=== PATIENT | female | born 1940 | race Caucasian/White ===

== ENCOUNTER 2017-07-12 23:07 | Inpatient (IN) | payer MEDICARE, MEDICAID ==
[~2017-07-12] VITALS: Ht 154.9 cm; Wt 63.6 kg
[2017-07-12] MEDS ORDERED: IPRATROPIUM (NEB) 0.5 MG/2.5 ML AMP INH STA (23:12)
[2017-07-12] MEDS ORDERED: ALBUTEROL 0.5% (NEB) 2.5 MG/0.5 ML AMP INH STA (23:12)
[2017-07-12 23:15] VITALS: Ht 154.9 cm; Wt 63.6 kg
[2017-07-12 23:36] LABS: Arterial Base Excess -7.9 mmol/L (-3.0-3); Arterial COHb 0.1 % (0.0-3.0); Arterial Fraction of Oxyhgb 98.2 % (93.0-99.0); Arterial HCO3 18.6 mmol/L (22.0-26.0); Arterial MetHb 0.1 % (0.0-1.5); Arterial Total Hemglobin 11.8 g/dl (12.0-18.0); Blood Gas PS 13; MODE BIPAP - S/T
[2017-07-12 23:46] LABS: BASOPHIL # 0.1 10^3/ul (0.0-0.1); BASOPHILS % 0.4 % (0.0-2.0); EOSINOPHILS # 0.3 10^3/ul (0.0-0.5); EOSINOPHILS % 1.6 % (0.0-7.0); HEMOGLOBIN 10.7 g/dl (12.0-16.0); LYMPHOCYTES # 1.7 10^3/ul (0.8-2.9); LYMPHOCYTES % 8.8 % (15.0-51.0); MEAN CORPUSCULAR HGB CONC 31.5 g/dl (32.0-37.0); MEAN CORPUSCULAR VOLUME 79.4 fl (82.0-101.0); MEAN PLATELET VOLUME 10.3 fl (7.4-10.4); MONOCYTE # 0.8 10^3/ul (0.3-0.9); NEUTROPHIL # 15.5 10^3/ul (1.6-7.5); NEUTROPHILS % 82.2 % (39.0-77.0); PLATELET COUNT 351 10^3/UL (140-415); RED BLOOD COUNT 4.28 10^6/ul (4.20-5.40); RED CELL DISTRIBUTION WIDTH 14.6 % (11.5-14.5); WHITE BLOOD COUNT 18.9 10^3/ul (4.8-10.8)
[2017-07-13] VITALS (9 sets, daily range): BP systolic 112–121; BP diastolic 59–61; PULSE 95–132; RESP 20–21; TEMP 98.8
[2017-07-13 00:06] LABS: INR 1.09; PROTIME 14.1 Sec (12.2-14.2); PT RATIO 1.1
[2017-07-13 00:07] LABS: PARTIAL THROMBOPLASTIN TIME 31.3 Sec (25.0-35.0)
[2017-07-13 00:13] LABS: CREATININE 1.24 mg/dl (0.44-1.00); POTASSIUM 3.9 mmol/L (3.5-5.1)
[2017-07-13] MEDS ORDERED: CEFEPIME 2GM/50 ML (PMX) 50 ML IVPB STA (00:23)
[2017-07-13] MEDS ORDERED: VANCOMYCIN 1 GM (PMX) 250 ML IVPB STA (00:23)
--- NOTE | 2017-07-13 00:23 | RADRPT ---
PROCEDURE: Chest. CLINICAL INDICATION: Chest pain. TECHNIQUE: Single frontal view of the chest was obtained. COMPARISON: None. FINDINGS: The cardiac silhouette is within normal limits. The aortic arch is calcified. There are hazy and pa tchy opacities bilaterally. There is no pleural effusion. There is no pneumothorax. IMPRESSION: Bilateral hazy and patchy opacities could represent pulmonary edema and/or multifocal pneumonia. Aortic atherosclerosis. .Junaid Herman MD, MD Date Time Electronically viewed and signed by .Junaid Herman MD, on 07/13/2017 00:22 .T/
[2017-07-13 00:30] LABS: TROPONIN-I 0.259 ng/ml (0.00-0.12)
[2017-07-13] MEDS ORDERED: ASPIRIN 325 MG TAB PO ONE (01:00)
[2017-07-13] MEDS ORDERED: INSULIN REGULAR, HUMAN 100 UNIT/1 ML 3ML VIAL SC ONE (01:00)
[2017-07-13] MEDS ORDERED: ACETAMINOPHEN 325 MG TAB PO PRN ×2 (01:30→15:30)
[2017-07-13] MEDS ORDERED: ONDANSETRON 4 MG INJ IV PRN ×2 (01:30→15:30)
--- NOTE | 2017-07-13 01:42 | ERA ---
ER Documentation Chief Complaint Date/Time DATE: 07/13/17 TIME: 01:38 Chief Complaint SOB HPI This is a 77-year-old female who presents to the ER for evaluation of shortness of breath. This patient is unable to give a detailed history secondary to her clinical condition however according to snf notes and EMS this patient started to complain of shortness of breath which is gotten worse over the past 30 minutes. Prior to arrival this patient was given a breathing treatment with albuterol and Atrovent with only mild improvement in her symptoms. ROS All systems reviewed and are negative except as per history of present illness. Allergies Allergies: Coded Allergies: Opioids - Morphine Analogues (Verified Allergy, Unknown, 07/13/17) Penicillins (Verified Allergy, Unknown, 07/13/17) Sulfa (Sulfonamide Antibiotics) (Verified Allergy, Unknown, 07/13/17) iodine (Verified Allergy, Unknown, 07/13/17) PMhx/Soc Hx Neurological Disorder: Yes (encephelopathy NOS, ) Hx Respiratory Disorders: Yes (COPD, neoplasm lung ) Hx Cardiac Disorders: Yes (HTN) Smoking Status: Unknown if ever smoked Physical Exam Vitals Vital Signs Date Time Temp Pulse Resp B/P Pulse Ox O2 Delivery O2 Flow Rate FiO2 07/13/17 01:30 105 22 101/64 100 BIPAP 07/12/17 23:20 120 100 100 07/12/17 23:15 130 32 124/77 99 07/12/17 23:15 15 Physical Exam INITIAL VITAL SIGNS: Reviewed by me GENERAL: The patient is ill-appearing elderly female, severe respiratory distress HEENT: Pupils equal, round, and reactive to light. EOMI. There is no scleral icterus. NECK: C-spine is soft and supple, there is no meningismus. There is no cervical lymphadenopathy. LUNGS: Coarse breath sounds bilaterally with bilateral rales and rhonchi HEART: Tachycardic, no murmurs, clicks, rubs or gallops. ABDOMEN: Soft, non-tender, non-distended. There are bowel sounds in all four quadrants. No rebound or guarding. EXTREMITIES: There is no peripheral cyanosis or edema. No focal swelling or erythema. NEUROLOGICAL: The patient moves all four extremities with 5/5 strength. Cranial nerves II - XII are intact. Alert oriented to person SKIN: There is no apparent rash or petechiae. HEME/LYMPHATIC: There is no evidence of excessive bruising or lymphedema. PSYCHIATRIC: The patient does not appear anxious or depressed. Result Diagram: 07/12/17 2332 07/12/17 2332 Results 24 hrs Laboratory Tests Test 07/12/17 23:27 07/12/17 23:32 07/13/17 01:21 Blood Gas Specimen Source Blood arterial Arterial Blood Date Drawn 07/12/2017 11:25:00 PM Arterial Blood pH (Temp corrected) 7.268 Arterial Blood pCO2 (Temp correct) 41.7mmhg Arterial Blood pO2 (Temp corrected) 146.3mmHG Arterial Blood HCO3 18.6mmol/L Arterial Blood Base Excess -7.9mmol/L Arterial Blood Oxygen Saturation 98.4mmHG Bernard Test N/A Arterial Blood Gas Puncture Site Right Brachial Arterial Blood Carboxyhemoglobin 0.1% Arterial Blood Methemoglobin 0.1% Blood Gas A-a O2 Differential 525.0mmHg Oxyhemoglobin Percent 98.2% Total Hemoglobin 11.8g/dl Blood Gas Temperature 37.0C Blood Gas Respiration Rate 18.0 Blood Gas Actual Respiration Rate 35 Blood Gas Modality BIPAP - S/T FiO2 100.0% Blood Gas Pressure Support 13 Blood Gas Critical Value Read Back Edgardo SPRAGUE DO Blood Gas Notified Whom BL Blood Gas Notified Time 07/12/2017 11:35:00 PM White Blood Count 18.910^3/ul Red Blood Count 4.2810^6/ul Hemoglobin 10.7g/dl Hematocrit 34.0% Mean Corpuscular Volume 79.4fl Mean Corpuscular Hemoglobin 25.0pg Mean Corpuscular Hemoglobin Concent 31.5g/dl Red Cell Distribution Width 14.6% Platelet Count 20522^3/UL Mean Platelet Volume 10.3fl Neutrophils % 82.2% Lymphocytes % 8.8% Monocytes % 4.0% Eosinophils % 1.6% Basophils % 0.4% Nucleated Red Blood Cells % 0.0/100WBC Neutrophils # 15.510^3/ul Lymphocytes # 1.710^3/ul Monocytes # 0.810^3/ul Eosinophils # 0.310^3/ul Basophils # 0.110^3/ul Nucleated Red Blood Cells # 0.010^3/ul Prothrombin Time 14.1Sec Prothrombin Time Ratio 1.1 INR International Normalized Ratio 1.09 Activated Partial Thromboplast Time 31.3Sec Sodium Level 139mmol/L Potassium Level 3.9mmol/L Chloride Level 106mmol/L Carbon Dioxide Level 19mmol/L Anion Gap 18 Blood Urea Nitrogen 23mg/dl Creatinine 1.24mg/dl Glucose Level 472mg/dl Calcium Level 9.0mg/dl Troponin I 0.259ng/ml B-Type Natriuretic Peptide 6100PG/ML Bedside Glucose 439mg/dL Current Medications Medications (Trade) Dose Ordered Sig/Cristela Route PRN Reason Start Time Stop Time Status Last Admin Dose Admin Albuterol (Proventil 0.5% (Neb)) 15 mg ONCE STAT INH 07/12/17 23:12 07/12/17 23:13 DC 07/12/17 23:45 Ipratropium [place] 1 mg 1 mg ONCE STAT INH 07/12/17 23:12 07/12/17 23:13 DC 07/12/17 23:45 Vancomycin HCl 250 ml @ 125 mls/hr ONCE STAT IVPB 07/13/17 00:23 07/13/17 02:22 Cefepime HCl (Maxipime 2gm/50 ml (Pmx)) 50 ml @ 100 mls/hr ONCE STAT IVPB 07/13/17 00:23 07/13/17 00:52 DC Aspirin (Aspirin) 325 mg ONCE ONCE PO 07/13/17 01:00 07/13/17 01:01 DC Insulin Human Regular (Humulin R) 10 unit ONCE ONCE SC 07/13/17 01:00 07/13/17 01:01 DC Ondansetron HCl (Zofran Inj) 4 mg ER BRIDGE PRN IV NAUSEA AND/OR VOMITING 07/13/17 01:30 07/14/17 01:29 Acetaminophen (Tylenol Tab) 650 mg ER BRIDGE PRN PO MILD PAIN/FEVER 07/13/17 01:30 07/14/17 01:29 Procedures/MDM EKG: Rate/Rhythm: Sinus tachycardia QRS, ST, T-waves: [No changes consistent w/ acute ischemia] Impression: Sinus tachycardia Chest X-ray 1V Interpreted by me: Soft Tissue: pulmonary edema and bilateral infiltrates Bones: No acute abnormalities Mediastinum/Cardiac Silhouette/Lungs: Pulmonary edema and bilateral infiltrates This 77-year-old female presents to the ER for evaluation of shortness of breath. When I evaluated her she was in moderate to severe respiratory distress. She was immediately placed on a BiPAP. This patient is a DNR with specific DO NOT INTUBATE directions. This patient did improve on the BiPAP, the patient underwent lab work which does reveal leukocytosis with bilateral pulmonary edema versus infiltrates. The patient was started on vancomycin and cefepime. Patient does have an elevated troponin and was given 325 mg of aspirin. She was not given 30 cc/kg of IV normal saline due to the fact that she has a fluid overload on her chest x-ray and is in respiratory distress on positive pressure ventilation. This patient will be placed on the telemetry floor under the care of her physician Dr. russ. Critical Care: Excluding all billable procedures Time: 44 minutes Treatments/Evaluations: Close monitoring and treatment of unstable vital signs, cardiorespiratory, and neurologic status, while maintaining tight balance of fluid, respiratory, and cardiac interventions. Departure Diagnosis: Primary Impression: Acute respiratory failure with hypoxia Additional Impressions: Bilateral pneumonia Pulmonary edema Non-STEMI (non-ST elevated myocardial infarction) Condition: Serious REIN SPRAGUE DO Jul 13, 2017 01:42
[2017-07-13] MEDS ORDERED: SOD CHLORIDE 0.9% 500 ML IV STA (02:28)
[2017-07-13] MEDS ORDERED: FUROSEMIDE 20 MG INJ IV ONE (05:30)
[2017-07-13 06:43] LABS: CK-MB 28.7 ng/ml (0.0-2.4)
[2017-07-13 06:50] LABS: TROPONIN-I 4.26 ng/ml (0.00-0.12)
[2017-07-13 12:02] LABS: CK-MB 29.8 ng/ml (0.0-2.4)
[2017-07-13 12:03] LABS: TROPONIN-I 3.75 ng/ml (0.00-0.12)
[2017-07-13] MEDS ORDERED: FUROSEMIDE 40 MG INJ ONE (14:43)
[2017-07-13 14:52] LABS: Allen Test ACCEPTAB; Arterial Base Excess -6.9 mmol/L (-3.0-3); Arterial COHb 0.3 % (0.0-3.0); Arterial Fraction of Oxyhgb 98.2 % (93.0-99.0); Arterial HCO3 18.8 mmol/L (22.0-26.0); Arterial MetHb 0.2 % (0.0-1.5); Arterial Total Hemglobin 11.1 g/dl (12.0-18.0); MODE MASK - NRB
[2017-07-13] MEDS ORDERED: FUROSEMIDE 40 MG INJ IV ONE (15:00)
[2017-07-13] MEDS ORDERED: ALBUTEROL/IPRATROPIUM (NEB) 3 ML AMP HHN PRN (15:30)
[2017-07-13] MEDS ORDERED: NITROGLYCERIN (SL) 0.4 MG TAB SL PRN (15:30)
[2017-07-13] MEDS ORDERED: morphine 2 MG INJ IV PRN (15:30)
[2017-07-13] MEDS ORDERED: HYDROCODONE/APAP (5/325) TAB PO PRN (15:30)
[2017-07-13] MEDS ORDERED: NACL 0.9% 3 ML SYG IV SCH (15:30)
[2017-07-13] MEDS ORDERED: GLUCOSE GEL 15 GRAM TUBE PO PRN ×2 (16:00)
[2017-07-13] MEDS ORDERED: GLUCAGON 1 MG INJ IM PRN (16:00)
[2017-07-13] MEDS ORDERED: GLUCOSE GEL 15 GRAM TUBE BUCCAL PRN (16:00)
[2017-07-13] MEDS ORDERED: DEXTROSE 50% 50 ML SYRINGE IV PRN ×2 (16:00)
--- NOTE | 2017-07-13 16:19 | RADRPT ---
PROCEDURE: XR Chest 1 View. CLINICAL INDICATION: Shortness of breath. TECHNIQUE: AP view of the chest was obtained. COMPARISON: Yesterday. FINDINGS: The heart size is within normal limits. Calcified atherosclerosis is noted in the aorta. Patchy inf iltrates throughout both lungs appears similar to prior exam. Osseous structures are unchanged. IMPRESSION: Calcified atherosclerosis in the aorta. Stable patchy infiltrates throughout both lungs. RPTAT: AA .Tayo Ellsworth MD, MD Date Time Electronically viewed and signed by .Tayo Ellsworth MD, on 07/13/2017 16:19 .P/
[2017-07-13] MEDS: LEVOFLOXACIN 750MG/D5W (PMX) 150 ML IVPB SCH (16:40)
[2017-07-13] MEDS: INSULIN GLARGINE [LANtus] 3 ML PEN SC SCH (16:49)
[2017-07-13] MEDS: FUROSEMIDE 40 MG INJ IV SCH (18:29)
[2017-07-13] MEDS: INSULIN ASPART [NOVOLOG] 3 ML PEN SC SCH ×2 (18:51→21:35)
--- NOTE | 2017-07-13 19:20 | HP ---
Date/Time of Note Date/Time of Note DATE: 07/13/17 TIME: 19:07 Assessment/Plan VTE Prophylaxis VTE Prophylaxis Intervention: LMWH Lines/Catheters IV C[facility]from [facility] Assessment/Plan Chief Complaint/Hosp Course 1. Acute respiratory distress secondary to volume overload and/or pneumonia- stable BNP is elevated although it is in the setting of kidney injury Lasix IV as well as Levaquin Obtain 2D echo Breathing treatments as needed Of note rapid response was called earlier secondary to shortness of breath but patient has now stabilized 2. Sepsis secondary to pneumonia versus possible UTI Obtain UA to evaluate for UTI Levaquin IV Lactic acid elevated but has normalized 3. Hyperglycemia-unknown if patient has diabetes Start scheduled Lantus, NovoLog sliding scale A1c in a.m. 4. Acute versus chronic kidney injury-baseline creatinine unknown Monitor 5. Non-ST elevation AL likely secondary to demand ischemia Troponins are trending down 2D echo Cardiology consultation obtained Aspirin and beta-parviz 6. Dementia Baseline mentation unknown 7. Microcytic anemia Check iron panel Prophylaxis: Lovenox Problems: HPI/ROS Admit Date/Time Admit Date/Time Jul 13, 2017 at 01:24 Hx of Present Illness Patient is a 77-year-old female who resides in a correction, patient presents with shortness of breath. Patient is a poor historian secondary to likely dementia and possible psychiatric disorder, however according to correction notes and EMS this patient started to complain of shortness of breath. Prior to arrival this patient was given a breathing treatment with albuterol and Atrovent with only mild improvement in her symptoms. In the ER chest x-ray showed pulmonary edema versus multifocal pneumonia, patient was given Lasix 1 will start antibiotics. Patient cannot provide any further history at this time. ROS Unable to obtain secondary to poor mentation PMH/Family/Social Past Medical History Unable to obtain secondary to poor mentation Social History Smoking Status: Unknown if ever smoked Exam/Review of Systems Vital Signs Vitals Vital Signs Date Time Temp Pulse Resp B/P Pulse Ox O2 Delivery O2 Flow Rate FiO2 07/13/17 17:00 98.3 116 21 121/61 99 07/13/17 14:40 15.0 07/13/17 11:00 Nasal Cannula 07/13/17 06:25 30 Intake and Output 07/12/17 07/12/17 07/13/17 15:00 23:00 07:00 Intake Total 800 ml Balance 800 ml Exam Constitutional: alert Psych: confusion Respiratory: clear to auscultation Cardiovascular: regular rate and rhythm Gastrointestinal: soft, No distended Musculoskeletal: nl extremities to inspection Labs Result Diagram: 07/12/17233107/12/17 233 Medications Medications Current Medications Ondansetron HCl (Zofran Inj) 4 mg Q6H PRN IV NAUSEA AND/OR VOMITING; Start at 15:30 Acetaminophen (Tylenol Tab) 650 mg Q6H PRN PO PAIN LEVEL 1-3 OR FEVER; Start 07/13/17 at 15:30 Acetaminophen/ Hydrocodone Bitart ([place] (5/325)) 1 tab Q6H PRN PO MODERATE PAIN LEVEL 4-6; Start 07/13/17 at 15:30 Morphine Sulfate (morphine) 2 mg Q4H PRN IV SEVERE PAIN LEVEL 7-10; Start at 15:30 Enoxaparin Sodium 30 mg 30 mg DAILY SC ; Start 07/14/17 at 09:00 Levofloxacin/ Dextrose (Levaquin 750 Mg/ D5W 150 ml (Pmx)) 150 ml @ 100 mls/hr Q48H IVPB Last administered on 07/13/17t 16:40; Admin Dose 100 MLS/HR; Start 07/13/17 at 15:30 Aspirin (Aspirin) 81 mg DAILY PO ; Start 07/15/17 at 09:00 Nitroglycerin (Nitroglycerin (Sl Tab) 0.4 Mg) 1 tab Q5M PRN SL CHEST PAIN; Start 07/13/17 at 15:30 Diagnostic Test (Pha) (Accu-Chek) 1 ea 02 XX ; Start 07/14/17 at 02:00 Insulin Glargine (Lantus) 13 unit DAILY@08 SC Last administered on 07/13/17t 16:49; Admin Dose 13 UNIT; Start 07/13/17 at 15:30 Diagnostic Test (Pha) (Accu-Chek) 1 ea 02 XX ; Start 07/14/17 at 02:00 Miscellaneous Information 1 ea NOTE XX ; Start 07/13/17 at 16:00 Glucose (Glutose) 15 gm Q15M PRN PO DECREASED GLUCOSE; Start 07/13/17 at 16:00 Glucose (Glutose) 22.5 gm Q15M PRN PO DECREASED GLUCOSE; Start 07/13/17 at 16: 00 Dextrose (D50w Syringe) 25 ml Q15M PRN IV DECREASED GLUCOSE; Start 07/13/17 at 16:00 Dextrose (D50w Syringe) 50 ml Q15M PRN IV DECREASED GLUCOSE; Start 07/13/17 at 16:00 Glucagon (Glucagen) 1 mg Q15M PRN IM DECREASED GLUCOSE; Start 07/13/17 at 16: 00 Glucose (Glutose) 15 gm Q15M PRN BUCCAL DECREASED GLUCOSE; Start 07/13/17 at 16:00 DREW TURNER Jul 13, 2017 19:18
[2017-07-14] VITALS (12 sets, daily range): BP systolic 94–123; BP diastolic 52–99; PULSE 87–121; RESP 17–19
[2017-07-14] MEDS ORDERED: ACCU-CHEK XX SCH (02:00)
[2017-07-14] MEDS: FUROSEMIDE 40 MG INJ IV SCH ×2 (05:58→17:28)
[2017-07-14] MEDS: INSULIN ASPART [NOVOLOG] 3 ML PEN SC SCH ×4 (06:18→20:27)
[2017-07-14 07:49] LABS: BASOPHIL # 0.1 10^3/ul (0.0-0.1); BASOPHILS % 0.4 % (0.0-2.0); EOSINOPHILS # 0.1 10^3/ul (0.0-0.5); EOSINOPHILS % 1.2 % (0.0-7.0); HEMATOCRIT 31.7 % (37.0-47.0); HEMOGLOBIN 9.9 g/dl (12.0-16.0); LYMPHOCYTES # 1.1 10^3/ul (0.8-2.9); LYMPHOCYTES % 9.2 % (15.0-51.0); MEAN CORPUSCULAR HEMOGLOBIN 24.5 pg (29.0-33.0); MEAN CORPUSCULAR HGB CONC 31.2 g/dl (32.0-37.0); MEAN CORPUSCULAR VOLUME 78.5 fl (82.0-101.0); MEAN PLATELET VOLUME 10.6 fl (7.4-10.4); MONOCYTE # 0.6 10^3/ul (0.3-0.9); MONOCYTES % 5.4 % (0.0-11.0); NEUTROPHIL # 9.8 10^3/ul (1.6-7.5); NEUTROPHILS % 83.2 % (39.0-77.0); PLATELET COUNT 324 10^3/UL (140-415); RED BLOOD COUNT 4.04 10^6/ul (4.20-5.40); RED CELL DISTRIBUTION WIDTH 14.7 % (11.5-14.5); WHITE BLOOD COUNT 11.8 10^3/ul (4.8-10.8)
[2017-07-14 08:17] LABS: IRON 14 ug/dl (35-150)
[2017-07-14] MEDS: INSULIN GLARGINE [LANtus] 3 ML PEN SC SCH (08:24)
[2017-07-14 08:27] LABS: TOTAL IRON BINDING CAPACITY 277 ug/dl (241-421)
[2017-07-14] MEDS ORDERED: ENOXAPARIN 30 MG/0.3 ML SYG SC SCH (09:00)
--- NOTE | 2017-07-14 09:54 | CONS ---
DATE OF ADMISSION: 07/13/2017 DATE OF CONSULTATION: 07/14/2017 NEPHROLOGY CONSULTATION REASON FOR CONSULTATION: Acute kidney injury. PHYSICIAN REQUESTING CONSULT: Dr. Abbott. HISTORY OF PRESENT ILLNESS: This is a 77-year-old female with a past medical history of dementia, h istory of diabetes, hypertension, who comes in to with shortness of evelina ath. The patient prior to arrival was given breathing treatment with only mild improvement. In the emergency room, the patient had a chest x-ray which showed evidence of possible pulmonary edema and multifocal pneumonia. The patient was given IV antibiotics, diuretic therapy, placed on BiPAP and admitted to telemetry for further evaluation. While on telemetry, the patient was able to be weaned off BiPAP. The patient, however, noted to have elevated troponins. She has increased to 9. There have been no reports of any hemoptysis, hemetemesis or hematochezia. In terms of the patient's renal history, the patient on admission noted to have a creatinine of 1.24 mg/dL with unknown baseline creatinine. There have been no reports of any hemoptysis, hematochezia or hematemesis. PAST MEDICAL HISTORY: As stated above, history of dementia, history of hypertension. PAST SURGICAL HISTORY: Unknown. ALLERGIES: MULTIPLE DRUG ALLERGIES. PLEASE SEE LIST. MEDICATIONS: The patient's medications have been reviewed. REVIEW OF SYSTEMS: Unable to do adequate review of systems as patient is altered. Pertinent positi ves obtained by reviewing medical records, speaking to hospital staff, stated in HPI, otherwise nega tive. FAMILY HISTORY: Please note that family history is noncontributory. SOCIAL HISTORY: The patient resides at a custodial facility. PHYSICAL EXAMINATION: VITAL SIGNS: Blood pressure 123/99, respiration 19, pulse 105, temperature 98.1. HEENT: Head is normocephalic. Pupils are reactive to light. NECK: Supple. HEART: Regular rate. LUNGS: Show diminished breath sounds at the base. ABDOMEN: Soft, nontender to palpation. No rebound or guarding. EXTREMITIES: Negative for clubbing, cyanosis. No edema. DERMATOLOGIC: No rashes. MUSCULOSKELETAL: No joint effusions. NEUROLOGIC: No obvious focal deficits, although exam is somewhat limited due to lack of patient prep cook peration. LABORATORY DATA: From 07/14/2017 shows a troponin of 8.3, glucose 244. White count 11.8, hemoglobi n 9, hematocrit 31.7, platelet count 324. The patient's lactic acid has normalized. BMP is current ly pending. ASSESSMENT AND PLAN: This is a 77-year-old female who presents with: 1. Nonoliguric acute kidney injury with unknown baseline creatinine. Etiology of acute kidney inju ry is likely secondary to hemodynamics, septic acute kidney injury. Other possibilities include tub ular injury. Plan at this point is to check a urinalysis with microanalysis. Check urine electroly ramirez, check a renal ultrasound. Would otherwise continue current treatment plan, supportive care, re mitchell dose all meds. 2. Anemia. Monitor hemoglobin and hematocrit levels. 3. Mineral bone disorder. Monitor calcium and phosphorus levels. 4. Severe sepsis secondary to pneumonia. The patient is clinically improving. Continue current an tibiotic regimen. Follow up with Infectious Disease. 5. Elevated troponin nonSTEMI. Continue current medical management with aspirin. Cardiology consu lt was placed with Dr. Barraza for followup. Will monitor. 6. Acute respiratory failure secondary to pneumonia, possible congestive heart failure. The patien t is currently off BiPAP. We will continue current medical management. Follow up with pulmonary. 7. Possible congestive heart failure. Continue intermittent diuretic therapy, followup 2D echo. 8. Acute encephalopathy and dementia. metabolic, continue to monitor. 9. Gastrointestinal and deep venous thrombosis prophylaxis. Continue proton pump inhibitor and Rozina enox. 10. Hypertension. Continue current blood pressure regimen. 11. Diabetes. Continue Accu-Cheks, insulin sliding scale. Thank you, Dr. Abbott, for this interesting consult. It will be a pleasure to follow patient with you throughout the hospital course. Dictated By: DYLAN CORTEZ/SANTOSH Conf#: [id number] DID#: [id number]
[2017-07-14 10:07] LABS: ALBUMIN 3.7 g/dl (3.3-4.9); ALBUMIN/GLOBULIN RATIO 0.94; BILIRUBIN,INDIRECT 0.5 mg/dl (0-1.1); BILIRUBIN,TOTAL 0.5 mg/dl (0.2-1.3); CALCIUM 9.2 mg/dl (8.4-10.2); CREATININE 1.24 mg/dl (0.44-1.00); MAGNESIUM 1.8 mg/dl (1.7-2.5); PHOSPHORUS 2.2 mg/dl (2.5-4.9); POTASSIUM 4.2 mmol/L (3.5-5.1); TOTAL PROTEIN 7.6 g/dl (6.1-8.1)
--- NOTE | 2017-07-14 10:55 | CONS ---
Date/Time of Note Date/Time of Note DATE: 07/14/17 TIME: 10:52 Assessment/Plan Assessment/Plan Additional Assessment/Plan Chest x-ray was reviewed from 14th of this month which is showing diffuse bilateral pneumonia more pronounced in right lung. Chest x-ray also was reviewed from yesterday which is showing slight interval improvement. Assessment and recommendations; 1. Patient admitted with bilateral pneumonia with improving leukocytosis as well as chest x-ray. 2. Findings are most suggestive of CHF. 3. Mild underlying renal insufficiency. 4. Advanced dementia. Continue Levaquin. Add Azactam 1 g IV every 12 hours. Obtain follow-up chest x -ray in 48 hours. Consultation Date/Type/Reason Admit Date/Time Jul 13, 2017 at 01:24 Date of Consultation: Jul 14, 2017 Type of Consultation: Pulmonary Reason for Consultation Pulmonary consultation requested for evaluation of bilateral pneumonia. Next History of presenting illness; patient is a 77-year-old white lady who was admitted from intermediate with complaints of being short of breath. Upon evaluation a chest x-ray was done which was showing severe bilateral pneumonia. The patient has advanced dementia and was unable to give any history by herself whatsoever, patient however remained quite awake but was talking to herself and was not making any sense. History of no pain to medical records. Past medical history; 1. Patient with a history of advanced dementia. 2. Apparent mild renal insufficiency. Medications; reviewed. Allergies; morphine, penicillin, sulfa drugs and iodine. Family history, occupational history, social histories not obtainable. General exam; elderly woman, awake, alert. Currently in no distress. Psychological: confusion Social History Smoking Status: Unknown if ever smoked Exam/Review of Systems Vital Signs Vitals Vital Signs Date Time Temp Pulse Resp B/P Pulse Ox O2 Delivery O2 Flow Rate FiO2 07/14/17 08:22 119 07/14/17 08:07 98.1 19 123/99 93 07/14/17 00:36 21 07/13/17 16:00 Non Rebreather 15.0 Intake and Output 07/13/17 07/13/17 07/14/17 15:00 23:00 07:00 Intake Total 0 ml Output Total 1500 ml 1600 ml Balance -1500 ml -1600 ml Exam HEENT exam; supple neck, no JVD. No lymphadenopathy. No thyromegaly. No neck masses. Patient is edentulous. Pupils are midsize and reactive to light. Chest exam; diminished but clear breath sounds. S1-S2 audible, no murmurs. Regular rhythm. Abdomen exam; soft, no organomegaly. Bowel sounds audible. Nontender. Extremity exam; no peripheral edema. No clubbing. 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 Results Result Diagram: 07/14/17 0642 07/14/17 0642 Results 24 hrs Laboratory Tests Test 07/13/17 11:22 07/13/17 12:45 07/13/17 14:35 07/13/17 14:43 Creatine Kinase 323 H Creatine Kinase Index 9.2 Creatinine Kinase MB (Mass) 29.80 H Troponin I 3.750 *H Bedside Glucose 289 H 296 H Blood Gas Specimen Source Blood arterial Arterial Blood Date Drawn 07/13/2017 2:43:04 PM Arterial Blood pH (Temp corrected) 7.309 L Arterial Blood pCO2 (Temp correct) 38.3 Arterial Blood pO2 (Temp corrected) 155.7 H Arterial Blood HCO3 18.8 L Arterial Blood Base Excess -6.9 L Arterial Blood Oxygen Saturation 98.7 Bernard Test ACCEPTAB Arterial Blood Gas Puncture Site Right Radial Arterial Blood Carboxyhemoglobin 0.3 Arterial Blood Methemoglobin 0.2 Blood Gas A-a O2 Differential 519.0 H Oxyhemoglobin Percent 98.2 Total Hemoglobin 11.1 L Blood Gas Temperature 37.0 Blood Gas Modality MASK - NRB FiO2 100.0 Blood Gas Notified Whom TM Blood Gas Notified Time 07/13/2017 2:52:44 PM Test 07/13/17 15:44 07/13/17 16:47 07/13/17 18:11 07/13/17 18:33 Lactic Acid Level 1.7 Bedside Glucose 278 H 296 H Troponin I 9.300 *H Test 07/13/17 21:20 07/13/17 23:35 07/14/17 01:16 07/14/17 06:00 Bedside Glucose 193 192 217 Lactic Acid Level 1.3 Test 07/14/17 06:42 07/14/17 08:19 White Blood Count 11.8 #H Red Blood Count 4.04 L Hemoglobin 9.9 L Hematocrit 31.7 L Mean Corpuscular Volume 78.5 L Mean Corpuscular Hemoglobin 24.5 L Mean Corpuscular Hemoglobin Concent 31.2 L Red Cell Distribution Width 14.7 H Platelet Count 324 Mean Platelet Volume 10.6 H Neutrophils % 83.2 H Lymphocytes % 9.2 L Monocytes % 5.4 Eosinophils % 1.2 Basophils % 0.4 Nucleated Red Blood Cells % 0.0 Neutrophils # 9.8 H Lymphocytes # 1.1 Monocytes # 0.6 Eosinophils # 0.1 Basophils # 0.1 Nucleated Red Blood Cells # 0.0 Sodium Level 144 Potassium Level 4.2 Chloride Level 109 Carbon Dioxide Level 24 Anion Gap 15 Blood Urea Nitrogen 28 H Creatinine 1.24 H Glucose Level 231 #H Hemoglobin A1c 7.6 H Lactic Acid Level 1.4 Calcium Level 9.2 Phosphorus Level 2.2 L Magnesium Level 1.8 Iron Level 14 L Total Iron Binding Capacity 277 Percent Iron Saturation 5 L Total Bilirubin 0.5 Direct Bilirubin 0.00 Indirect Bilirubin 0.5 Aspartate Amino Transf (AST/SGOT) 60 H Alanine Aminotransferase (ALT/SGPT) 30 Alkaline Phosphatase 77 Troponin I 8.370 *H Total Protein 7.6 Albumin 3.7 Globulin 3.90 H Albumin/Globulin Ratio 0.94 Bedside Glucose 244 H Medications Medications Current Medications Ondansetron HCl (Zofran Inj) 4 mg Q6H PRN IV NAUSEA AND/OR VOMITING; Start at 15:30 Acetaminophen (Tylenol Tab) 650 mg Q6H PRN PO PAIN LEVEL 1-3 OR FEVER; Start 07/13/17 at 15:30 Acetaminophen/ Hydrocodone Bitart ([place] (5/325)) 1 tab Q6H PRN PO MODERATE PAIN LEVEL 4-6; Start 07/13/17 at 15:30 Morphine Sulfate (morphine) 2 mg Q4H PRN IV SEVERE PAIN LEVEL 7-10; Start at 15:30 Enoxaparin Sodium 30 mg 30 mg DAILY SC Last administered on 07/14/17 08:32; Admin Dose 30 MG; Start 07/14/17 at 09:00 Levofloxacin/ Dextrose (Levaquin 750 Mg/ D5W 150 ml (Pmx)) 150 ml @ 100 mls/hr Q48H IVPB Last administered on 07/13/17 16:40; Admin Dose 100 MLS/HR; Start 07/13/17 at 15:30 Aspirin (Aspirin) 81 mg DAILY PO ; Start 07/15/17 at 09:00 Nitroglycerin (Nitroglycerin (Sl Tab) 0.4 Mg) 1 tab Q5M PRN SL CHEST PAIN; Start 07/13/17 at 15:30 Diagnostic Test (Pha) (Accu-Chek) 1 ea 02 XX ; Start 07/14/17 at 02:00 Insulin Glargine (Lantus) 13 unit DAILY@08 SC Last administered on 07/14/17 08:24; Admin Dose 13 UNIT; Start 07/13/17 at 15:30 Diagnostic Test (Pha) (Accu-Chek) 1 ea 02 XX ; Start 07/14/17 at 02:00 Miscellaneous Information 1 ea NOTE XX ; Start 07/13/17 at 16:00 Glucose (Glutose) 15 gm Q15M PRN PO DECREASED GLUCOSE; Start 07/13/17 at 16:00 Glucose (Glutose) 22.5 gm Q15M PRN PO DECREASED GLUCOSE; Start 07/13/17 at 16: 00 Dextrose (D50w Syringe) 25 ml Q15M PRN IV DECREASED GLUCOSE; Start 07/13/17 at 16:00 Dextrose (D50w Syringe) 50 ml Q15M PRN IV DECREASED GLUCOSE; Start 07/13/17 at 16:00 Glucagon (Glucagen) 1 mg Q15M PRN IM DECREASED GLUCOSE; Start 07/13/17 at 16: 00 Glucose (Glutose) 15 gm Q15M PRN BUCCAL DECREASED GLUCOSE; Start 07/13/17 at 16:00 Carvedilol (Coreg) 3.125 mg BID PO Last administered on 07/14/17t 08:30; Admin Dose 3.125 MG; Start 07/13/17 at 21:00 SHARATH HARRIS Jul 14, 2017 10:55
[2017-07-14] MEDS: AZTREONAM 1 GM/NS (PMX) 50 ML IVPB SCH ×2 (12:40→20:39)
--- NOTE | 2017-07-14 14:23 | CONS ---
DATE OF ADMISSION: 07/13/2017 DATE OF CONSULTATION: 07/14/2017 INFECTIOUS DISEASE CONSULTATION REASON FOR CONSULTATION: Antibiotic management. HISTORY OF PRESENT ILLNESS: Janine Murray is a 77-year-old female who resides in a [facility] and presented with shortness of breath. Her problems include: 1. Dementia. 2. Probable psychiatric disorder. Acutely, the patient comes in with shortness of breath. Her white count is 18.9, H and H 10.7, and 30 and 34, platelet count 351,000. BUN and creatinine 23/1.2. Glucose random is 472. PAST MEDICAL HISTORY: Operations as outlined. FAMILY HISTORY: Noncontributory. SOCIAL HISTORY: She does not smoke, drink or abuse drugs. ALLERGIES: NONE TO PENICILLIN, SULFA OR FOODS. MEDICATIONS: Per chart. REVIEW OF SYSTEMS: As per HPI. HOSPITAL COURSE: Her chest x-ray on the shows stable patchy infiltrates throughout both lungs. PHYSICAL EXAMINATION: GENERAL: The patient is an elderly appearing female who is awake, but confused, in no acute distres s. VITAL SIGNS: Stable. She is afebrile. SKIN: Without generalized rash. HEENT: Within normal limits. NECK: Supple. LYMPH NODES: None palpable. CHEST: Decreased breath sounds at the bases. HEART: Without murmur or gallop. ABDOMEN: Soft, nontender, without organosplenomegaly or masses. EXTREMITIES: Without cyanosis, clubbing, or edema. RECTAL AND GENITAL: Deferred. NEUROLOGIC: No focal neurological abnormalities. IMPRESSION AND PLAN: The patient has severe sepsis secondary to pneumonia. She is clinically impro ving. She has been seen by Dr. Larkin and . She has bilateral pneumonia, improving leuko cytosis. Azactam was added to her regimen since she is allergic to morphine, penicillin, sulfa drug s and iodine. Her white count today is 11.8. We will continue her on current therapy, Levaquin and Azactam. I will dictate my findings to the hospitalist and to and Dr. Larkin. Dictated By: LELE DE LEON MD, JD/SANTOSH Conf#: [id number] DID#: [id number]
--- NOTE | 2017-07-14 14:28 | PN ---
Date/Time of Note Date/Time of Note DATE: 07/14/17 TIME: 14:24 Assessment/Plan VTE Prophylaxis VTE Prophylaxis Intervention: LMWH Lines/Catheters IV Catheter Type (from Nrs): Saline Lock Central line still needed: Yes Urinary Cath still in place: Yes Reason Cath still needed: urinary retention Assessment/Plan Chief Complaint/Hosp Course 77 yo female with dementia, DMII who presented with pneumonia, acute decompnestaed CHF and sepsis with NSTEMI NSTEMI: - Suspect this was demand ischemia, though likely does have underlying CAD - Aspirin/statin Pneumonia: - Abx course CHF: - Diuresis, euvolemic Dementia: - stable need to obtain collateral from family Problems: Subjective 24 Hr Interval Summary Free Text/Dictation Patient w advanced dementia, cannot provide history She is quite comfortable appearing, no discomfort she comlains of Exam/Review of Systems Vital Signs Vitals Vital Signs Date Time Temp Pulse Resp B/P Pulse Ox O2 Delivery O2 Flow Rate FiO2 07/14/17 12:18 87 07/14/17 11:48 98.1 17 110/52 92 07/14/17 00:36 21 07/13/17 16:00 Non Rebreather 15.0 Intake and Output 07/13/17 07/13/17 07/14/17 15:00 23:00 07:00 Intake Total 0 ml Output Total 1500 ml 1600 ml Balance -1500 ml -1600 ml Exam Alert, pleasantly demented, nonsensical speech RRR Flat neck veins Nonlabored respiratory pattern No peripheral edema Psych: nl mood/affect, no complaints Head: atraumatic, normocephalic Eyes: EOMI, PERRL, nl conjunctiva, nl lids, nl sclera ENMT: nl external ears & nose, nl lips & teeth, nl nasal mucosa & septum Neck: non-tender, supple Respiratory: clear to auscultation, normal air movement Cardiovascular: nl pulses, regular rate and rhythm Gastrointestinal: nl liver, spleen, non-tender, soft Musculoskeletal: nl extremities to inspection, nl gait and stance Extremities: normal pulses Neurological: DELICATE [employer] PRESSER II-XII intact, nl mental status, nl speech, nl strength Skin: nl turgor, No rash or lesions Lymph: nl lymph nodes Results Result Diagram: 07/14/17 0642 07/14/17 0642 Results 24 hrs Laboratory Tests Test 07/13/17 14:35 07/13/17 14:43 07/13/17 15:44 07/13/17 16:47 Bedside Glucose 296 H 278 H Blood Gas Specimen Source Blood arterial Arterial Blood Date Drawn 07/13/2017 2:43:04 PM Arterial Blood pH (Temp corrected) 7.309 L Arterial Blood pCO2 (Temp correct) 38.3 Arterial Blood pO2 (Temp corrected) 155.7 H Arterial Blood HCO3 18.8 L Arterial Blood Base Excess -6.9 L Arterial Blood Oxygen Saturation 98.7 Bernard Test ACCEPTAB Arterial Blood Gas Puncture Site Right Radial Arterial Blood Carboxyhemoglobin 0.3 Arterial Blood Methemoglobin 0.2 Blood Gas A-a O2 Differential 519.0 H Oxyhemoglobin Percent 98.2 Total Hemoglobin 11.1 L Blood Gas Temperature 37.0 Blood Gas Modality MASK - NRB FiO2 100.0 Blood Gas Notified Whom TM Blood Gas Notified Time 07/13/2017 2:52:44 PM Lactic Acid Level 1.7 Test 07/13/17 18:11 07/13/17 18:33 07/13/17 21:20 07/13/17 23:35 Bedside Glucose 296 H 193 Troponin I 9.300 *H Lactic Acid Level 1.3 Test 07/14/17 01:16 07/14/17 06:00 07/14/17 06:42 07/14/17 08:19 Bedside Glucose 192 217 244 H White Blood Count 11.8 #H Red Blood Count 4.04 L Hemoglobin 9.9 L Hematocrit 31.7 L Mean Corpuscular Volume 78.5 L Mean Corpuscular Hemoglobin 24.5 L Mean Corpuscular Hemoglobin Concent 31.2 L Red Cell Distribution Width 14.7 H Platelet Count 324 Mean Platelet Volume 10.6 H Neutrophils % 83.2 H Lymphocytes % 9.2 L Monocytes % 5.4 Eosinophils % 1.2 Basophils % 0.4 Nucleated Red Blood Cells % 0.0 Neutrophils # 9.8 H Lymphocytes # 1.1 Monocytes # 0.6 Eosinophils # 0.1 Basophils # 0.1 Nucleated Red Blood Cells # 0.0 Sodium Level 144 Potassium Level 4.2 Chloride Level 109 Carbon Dioxide Level 24 Anion Gap 15 Blood Urea Nitrogen 28 H Creatinine 1.24 H Glucose Level 231 #H Hemoglobin A1c 7.6 H Lactic Acid Level 1.4 Calcium Level 9.2 Phosphorus Level 2.2 L Magnesium Level 1.8 Iron Level 14 L Total Iron Binding Capacity 277 Percent Iron Saturation 5 L Total Bilirubin 0.5 Direct Bilirubin 0.00 Indirect Bilirubin 0.5 Aspartate Amino Transf (AST/SGOT) 60 H Alanine Aminotransferase (ALT/SGPT) 30 Alkaline Phosphatase 77 Troponin I 8.370 *H Total Protein 7.6 Albumin 3.7 Globulin 3.90 H Albumin/Globulin Ratio 0.94 Test 07/14/17 12:16 Bedside Glucose 218 Medications Medications Current Medications Ondansetron HCl (Zofran Inj) 4 mg Q6H PRN IV NAUSEA AND/OR VOMITING; Start at 15:30 Acetaminophen (Tylenol Tab) 650 mg Q6H PRN PO PAIN LEVEL 1-3 OR FEVER; Start 07/13/17 at 15:30 Acetaminophen/ Hydrocodone Bitart ([place] (5/325)) 1 tab Q6H PRN PO MODERATE PAIN LEVEL 4-6; Start 07/13/17 at 15:30 Morphine Sulfate 2 mg 2 mg Q4H PRN IV SEVERE PAIN LEVEL 7-10; Start 07/13/17 at 15:30 Levofloxacin/ Dextrose (Levaquin 750 Mg/ D5W 150 ml (Pmx)) 150 ml @ 100 mls/hr Q48H IVPB Last administered on 07/13/17t 16:40; Admin Dose 100 MLS/HR; Start 07/13/17 at 15:30 Aspirin (Aspirin) 81 mg DAILY PO ; Start 07/15/17 at 09:00 Nitroglycerin (Nitroglycerin (Sl Tab) 0.4 Mg) 1 tab Q5M PRN SL CHEST PAIN; Start 07/13/17 at 15:30 Diagnostic Test (Pha) (Accu-Chek) 1 ea 02 XX ; Start 07/14/17 at 02:00 Insulin Glargine (Lantus) 13 unit DAILY@08 SC Last administered on 07/14/17t 08:24; Admin Dose 13 UNIT; Start 07/13/17 at 15:30 Diagnostic Test (Pha) (Accu-Chek) 1 ea 02 XX ; Start 07/14/17 at 02:00 Miscellaneous Information 1 ea NOTE XX ; Start 07/13/17 at 16:00 Glucose (Glutose) 15 gm Q15M PRN PO DECREASED GLUCOSE; Start 07/13/17 at 16:00 Glucose (Glutose) 22.5 gm Q15M PRN PO DECREASED GLUCOSE; Start 07/13/17 at 16: 00 Dextrose (D50w Syringe) 25 ml Q15M PRN IV DECREASED GLUCOSE; Start 07/13/17 at 16:00 Dextrose (D50w Syringe) 50 ml Q15M PRN IV DECREASED GLUCOSE; Start 07/13/17 at 16:00 Glucagon (Glucagen) 1 mg Q15M PRN IM DECREASED GLUCOSE; Start 07/13/17 at 16: 00 Glucose (Glutose) 15 gm Q15M PRN BUCCAL DECREASED GLUCOSE; Start 07/13/17 at 16:00 Carvedilol 3.125 mg 3.125 mg BID PO Last administered on 07/14/17 08:30; Admin Dose 3.125 MG; Start 07/13/17 at 21:00 Aztreonam (Azactam 1gm/NS (Pmx)) 50 ml @ 100 mls/hr Q12 IVPB Last administered on 07/14/17 12:40; Admin Dose 100 MLS/HR; Start 07/14/17 at 12: 30 Enoxaparin Sodium (Lovenox) 60 mg DAILY SC ; Start 07/15/17 at 09:00 EUGENIE STRONG MD Jul 14, 2017 14:28
--- NOTE | 2017-07-14 15:35 | CONS ---
DATE OF ADMISSION: 07/13/2017 DATE OF CONSULTATION: 07/14/2017 REASON FOR CONSULTATION: Non-ST elevation myocardial infarction. REQUESTING PHYSICIAN: Dr. Abbott from the hospitalist service. HISTORY OF PRESENT ILLNESS: Ms. Murray is a 77-year-old female with a history of advanced dementia, c hronic kidney disease, hypertension who initially presented from her chronic care facility with wors ening shortness of breath. Upon arrival in the emergency department, temperature of 97.8, blood pre ssure 124/77, pulse 130, respiratory rate 32, saturating 99% on 15 liters. Patient's labs were nota ble for a sodium of 139, a potassium of 3.9, creatinine 1.24, BUN 23, glucose of 472. Troponin posi tive 0.25 now with a BNP of 6100. ABG revealing a pH of 7.268, a PaO2 of 146, a pCO2 of 41. An INR of 10, white count of 18.9, hemoglobin of 10.7, platelet count 351. The patient underwent a chest x-ray revealing bilateral hazy and patchy opacities that could represent pulmonary edema and/or mult ifocal pneumonia. The patient's electrocardiogram revealed sinus tachycardia at 118 with borderline inferior and lateral ST depressions. Patient subsequently is admitted to the floor. She has been monitored on telemetry, placed on low dose beta parviz Carvedilol, Lasix diuresis, broad-spectrum a ntibiotics. The patient's troponins were trending up from 0.259 up to a peak of 9.3 and then back d own to 8.3 today. The patient denies chest pain at this time. PAST MEDICAL HISTORY: As above in HPI. MEDICATIONS CURRENTLY IN HOSPITAL 1. Aspirin 81 mg daily. 2. Aztreonam q.12h. 3. Lovenox subcutaneous daily. 4. Carvedilol 3.125 mg p.o. b.i.d. 5. Insulin sliding scale. 6. Lasix 20 mg IV b.i.d. 7. Levofloxacin. 8. Lantus. ALLERGIES: 1. MORPHINE. 2. PENICILLIN. 3. SULFA. 4. IODINE. SOCIAL HISTORY: No current tobacco, ETOH or illicit drug use. FAMILY HISTORY: No history of sudden cardiac or early CAD. REVIEW OF SYSTEMS: As above in HPI. CONSTITUTIONAL: No fevers, chills. PULMONARY: No current signs of respiratory compromise. GASTROINTESTINAL: No vomiting. GENITOURINARY: No hematuria. MUSCULOSKELETAL: Degenerative joint disease. PSYCHIATRIC: No documented psych history. NEUROLOGIC: Dementia, confusion. PHYSICAL EXAMINATION: VITAL SIGNS: Temperature of 98.1, blood pressure 110/52, pulse 90, respirations 17, saturating 92%. GENERAL: The patient is alert, awake, in no acute distress. NECK: JVP approximately 9 cm water. CHEST: Decreased breath sounds at bases bilaterally. HEART: Regular rate and rhythm. Normal S1, S2, I/ systolic murmur, nondisplaced PMI. ABDOMEN: Positive bowel sounds, soft. EXTREMITIES: No pitting edema, 1+ pulses bilaterally posterior tibial. LABORATORY DATA: Most recent from today, sodium 144, potassium 4.2, creatinine 1.24, BUN of 28, AST 60, ALT 30. Troponin 8.37, down from a peak of 9, white count 11.8, hemoglobin of 9.9, platelet co unt 324. IMAGING STUDIES: As above in HPI with chest x-ray from the revealing calcified atherosclerosis of aorta, stable patchy infiltrates throughout both lungs. ECG: As above in HPI. No further electrocardiograms for my review at this time. IMPRESSION: 1. Non-ST elevation myocardial infarction in the setting of respiratory distress, mild renal insuff iciency with currently down trending cardiac enzymes. No chest pain. 2. Hypertension, under reasonable control. 3. Abnormal electrocardiogram with nonspecific ST and T abnormalities in the setting of non-ST elev ation myocardial infarction. 4. Probable congestive heart failure by chest x-ray, question systolic versus diastolic acute on chronic. 5. Likely associated pneumonia. 6. Renal insufficiency. 7. Diabetes mellitus, uncontrolled blood sugars. 8. Leukocytosis. 9. Anemia. RECOMMENDATIONS: 1. At this time, would maintain patient on telemetry monitoring to follow rhythm and rates closely. 2. Continue to trend the patient's cardiac enzymes to assess for any significant ongoing cardiac da mage, thus an EKG in the morning, EKG for any complaints of chest pain or change in rhythm. 3. Continue the patient's aspirin at this time in the setting of positive troponin and will continu e the patient's Lovenox, will increase it to treatment doses. 4. Continue the patient's beta parviz at this time following heart rate and blood pressure closely . 5. We will check a 2D echocardiogram to further assess patient's ejection fraction, wall motion and any major valve abnormalities. 6. Continue the patient's Lasix diuresis, following volume status closely and continue the patient' s antibiotics and follow up all culture data. Additionally, continue to follow the patient's blood sugars closely and follow the patient's ongoing mental status with significant confusion closely. 7. Will put him on a medical therapy on this patient at this time until patient has improvement, po ssibly in mental status. Thank you for allowing me to take part in the care of this patient. I will continue to follow along very closely with you. Further recommendations will be made as the patient progresses through her inpatient hospital clinical course. Dictated By: ANGEL MIX/SANTOSH Conf#: [id number] DID#: [id number]
[2017-07-14] MEDS: ACCU-CHEK XX SCH (20:20)
[2017-07-14 22:16] LABS: CK-MB 4.45 ng/ml (0.0-2.4)
[2017-07-14 22:22] LABS: TROPONIN-I 8.39 ng/ml (0.00-0.12)
[2017-07-14 23:55] LABS: ADD UMIC YES; UR ASCORBIC ACID NEGATIVE (NEGATIVE); UR BILIRUBIN (Dip) NEGATIVE (NEGATIVE); UR BLOOD (Dip) 3+ mg/dL (NEGATIVE); UR CLARITY SLIGHTLY CLOUDY (CLEAR); UR COLOR YELLOW (YELLOW); UR GLUCOSE (Dip) NEGATIVE (NEGATIVE); UR KETONES (Dip) NEGATIVE (NEGATIVE); UR LEUKOCYTE ESTERASE (Dip) 2+ Leu/ul (NEGATIVE); UR MUCUS FEW /HPF (NONE SEEN); UR NITRITE (Dip) NEGATIVE (NEGATIVE); UR RBC > 182 /HPF (0-5); UR TOTAL PROTEIN (Dip) 2+ mg/dl (NEGATIVE); UR UROBILINOGEN (Dip) NEGATIVE (NEGATIVE)
[2017-07-15] VITALS (13 sets, daily range): BP systolic 97–120; BP diastolic 54–94; PULSE 81–97; RESP 17–18
[2017-07-15] MEDS: ACCU-CHEK XX SCH (01:21)
[2017-07-15 01:55] LABS: CK-MB 3.41 ng/ml (0.0-2.4)
[2017-07-15 02:09] LABS: TROPONIN-I 8.42 ng/ml (0.00-0.12)
[2017-07-15] MEDS: FUROSEMIDE 40 MG INJ IV SCH ×2 (05:14→18:18)
[2017-07-15 07:39] LABS: BASOPHIL # 0.1 10^3/ul (0.0-0.1); BASOPHILS % 0.5 % (0.0-2.0); EOSINOPHILS # 0.4 10^3/ul (0.0-0.5); EOSINOPHILS % 3.9 % (0.0-7.0); HEMATOCRIT 30.9 % (37.0-47.0); HEMOGLOBIN 9.8 g/dl (12.0-16.0); LYMPHOCYTES # 1.4 10^3/ul (0.8-2.9); LYMPHOCYTES % 13.8 % (15.0-51.0); MEAN CORPUSCULAR HEMOGLOBIN 24.8 pg (29.0-33.0); MEAN CORPUSCULAR HGB CONC 31.7 g/dl (32.0-37.0); MEAN CORPUSCULAR VOLUME 78.2 fl (82.0-101.0); MEAN PLATELET VOLUME 10.4 fl (7.4-10.4); MONOCYTE # 0.6 10^3/ul (0.3-0.9); MONOCYTES % 6.2 % (0.0-11.0); NEUTROPHIL # 7.7 10^3/ul (1.6-7.5); NEUTROPHILS % 75.1 % (39.0-77.0); PLATELET COUNT 338 10^3/UL (140-415); RED BLOOD COUNT 3.95 10^6/ul (4.20-5.40); RED CELL DISTRIBUTION WIDTH 14.7 % (11.5-14.5); WHITE BLOOD COUNT 10.3 10^3/ul (4.8-10.8)
[2017-07-15 08:02] LABS: ALBUMIN 3.4 g/dl (3.3-4.9); ALBUMIN/GLOBULIN RATIO 0.82; BILIRUBIN,INDIRECT 0.4 mg/dl (0-1.1); BILIRUBIN,TOTAL 0.4 mg/dl (0.2-1.3); CALCIUM 9.4 mg/dl (8.4-10.2); CREATININE 1.41 mg/dl (0.44-1.00); POTASSIUM 3.4 mmol/L (3.5-5.1); TOTAL PROTEIN 7.5 g/dl (6.1-8.1)
[2017-07-15 08:16] LABS: MAGNESIUM 1.7 mg/dl (1.7-2.5); PHOSPHORUS 2.7 mg/dl (2.5-4.9)
[2017-07-15 08:17] LABS: CHOL/HDL RATIO 6.2 RATIO
[2017-07-15] MEDS: INSULIN GLARGINE [LANtus] 3 ML PEN SC SCH (08:19)
[2017-07-15] MEDS: INSULIN ASPART [NOVOLOG] 3 ML PEN SC SCH ×4 (08:27→20:54)
[2017-07-15 08:33] LABS: THYROID STIMULATING HORMONE 0.064 MIU/L (0.465-4.680)
[2017-07-15 08:37] LABS: FERRITIN 58.5 ng/ml (11.1-264.0)
[2017-07-15] MEDS: AZTREONAM 1 GM/NS (PMX) 50 ML IVPB SCH ×2 (10:35→20:54)
--- NOTE | 2017-07-15 10:38 | CONS ---
Date/Time of Note Date/Time of Note DATE: 07/15/17 TIME: 10:37 Assessment/Plan Assessment/Plan Additional Assessment/Plan 1. Non-ST elevation myocardial infarction in the setting of respiratory distress, mild renal insufficiency with currently down trending cardiac enzymes. No chest pain. MED rx for now. 2. Hypertension, under reasonable control - well Rx now. 3. Abnormal electrocardiogram with nonspecific ST and T abnormalities in the setting of non-ST elevation myocardial infarction. 4. Probable congestive heart failure by chest x-ray, question systolic versus diastolic acute on chronic. ECHO to follow. 5. Likely associated pneumonia. On anti-bx. 6. Renal insufficiency. 7. Diabetes mellitus, uncontrolled blood sugars. 8. Leukocytosis. 9. Anemia. Consultation Date/Type/Reason Admit Date/Time Jul 13, 2017 at 01:24 Initial Consult Date 07/14/17 Type of Consultation: Pulmonary 24 HR Interval Summary Free Text/Dictation NO acute events - BP in good range - no CP now. ROS: No fever, no chills, no nausea, no vomiting, no diarrhea/constipation No recent weight changes No chest pain, no PND, no orthopnea No dizziness, blurred vision No thirst, no heat or cold intolerance Exam/Review of Systems Vital Signs Vitals Vital Signs Date Time Temp Pulse Resp B/P Pulse Ox O2 Delivery O2 Flow Rate FiO2 07/15/17 08:00 86 07/15/17 07:56 97.8 18 120/94 94 07/15/17 01:57 21 07/13/17 16:00 Non Rebreather 15.0 Intake and Output 07/14/17 07/14/17 07/15/17 15:00 23:00 07:00 Intake Total 740 ml 120 ml Output Total 1200 ml 800 ml Balance -460 ml -680 ml Exam General: WN/WD/NAD, AOx comfortable HEENT: Unicetric/atraumatic/EOMI (follows commands) NECK: JVD elevated, no thyromegaly Lymph: no lymphadenopathy HEART: regular with no S3, II/ systolic murmur at apex LUNGS: Coarse sounds ABD: soft, NT, ND, +BS : Intact Neuro: non focal SKIN: chronic changes EXT: trace edema Results Result Diagram: 07/15/17 0700 07/15/17 0700 Results 24 hrs Laboratory Tests Test 07/14/17 12:16 07/14/17 17:15 07/14/17 20:26 07/14/17 21:27 Bedside Glucose 218 204 169 Creatine Kinase 134 # Creatine Kinase Index 3.3 Creatinine Kinase MB (Mass) 4.45 H Troponin I 8.390 *H Test 07/14/17 22:53 07/14/17 23:35 07/15/17 01:08 07/15/17 07:00 Urine Color YELLOW Urine Clarity SLIGHTLY CLOUDY A Urine pH 5.0 Urine Specific [place] 1.010 Urine Ketones NEGATIVE Urine Nitrite NEGATIVE Urine Bilirubin NEGATIVE Urine Urobilinogen NEGATIVE Urine Leukocyte Esterase 2+ H Urine Microscopic RBC > 182 H Urine Microscopic WBC 40 H Urine Mucus FEW A Urine Hemoglobin 3+ H Urine Glucose NEGATIVE Urine Total Protein 2+ H Troponin I 10.400 *H 8.420 *H Creatine Kinase 125 Creatine Kinase Index 2.7 Creatinine Kinase MB (Mass) 3.41 H White Blood Count 10.3 Red Blood Count 3.95 L Hemoglobin 9.8 L Hematocrit 30.9 L Mean Corpuscular Volume 78.2 L Mean Corpuscular Hemoglobin 24.8 L Mean Corpuscular Hemoglobin Concent 31.7 L Red Cell Distribution Width 14.7 H Platelet Count 338 Mean Platelet Volume 10.4 Neutrophils % 75.1 Lymphocytes % 13.8 L Monocytes % 6.2 Eosinophils % 3.9 Basophils % 0.5 Nucleated Red Blood Cells % 0.0 Neutrophils # 7.7 H Lymphocytes # 1.4 Monocytes # 0.6 Eosinophils # 0.4 Basophils # 0.1 Nucleated Red Blood Cells # 0.0 Sodium Level 143 Potassium Level 3.4 L Chloride Level 104 Carbon Dioxide Level 29 Anion Gap 13 Blood Urea Nitrogen 34 H Creatinine 1.41 H Glucose Level 214 Calcium Level 9.4 Phosphorus Level 2.7 Magnesium Level 1.7 Ferritin 58.5 Total Bilirubin 0.4 Direct Bilirubin 0.00 Indirect Bilirubin 0.4 Aspartate Amino Transf (AST/SGOT) 38 Alanine Aminotransferase (ALT/SGPT) 23 Alkaline Phosphatase 78 Total Protein 7.5 Albumin 3.4 Globulin 4.10 H Albumin/Globulin Ratio 0.82 Triglycerides Level 185 H Cholesterol Level 230 H LDL Cholesterol, Calculated 156 HDL Cholesterol 37 Cholesterol/HDL Ratio 6.2 Thyroid Stimulating Hormone (TSH) 0.064 L Test 07/15/17 07:53 Bedside Glucose 215 Medications Medications Current Medications Ondansetron HCl (Zofran Inj) 4 mg Q6H PRN IV NAUSEA AND/OR VOMITING; Start at 15:30 Acetaminophen (Tylenol Tab) 650 mg Q6H PRN PO PAIN LEVEL 1-3 OR FEVER; Start 07/13/17 at 15:30 Acetaminophen/ Hydrocodone Bitart ([place] (5/325)) 1 tab Q6H PRN PO MODERATE PAIN LEVEL 4-6; Start 07/13/17 at 15:30 Morphine Sulfate 2 mg 2 mg Q4H PRN IV SEVERE PAIN LEVEL 7-10; Start 07/13/17 at 15:30 Levofloxacin/ Dextrose (Levaquin 750 Mg/ D5W 150 ml (Pmx)) 150 ml @ 100 mls/hr Q48H IVPB Last administered on 07/13/17 16:40; Admin Dose 100 MLS/HR; Start 07/13/17 at 15:30 Aspirin (Aspirin) 81 mg DAILY PO ; Start 07/15/17 at 09:00 Nitroglycerin (Nitroglycerin (Sl Tab) 0.4 Mg) 1 tab Q5M PRN SL CHEST PAIN; Start 07/13/17 at 15:30 Diagnostic Test (Pha) (Accu-Chek) 1 ea 02 XX Last administered on 07/14/17 20 :20; Admin Dose 1 EA; Start 07/14/17 at 02:00 Miscellaneous Information 1 ea NOTE XX ; Start 07/13/17 at 16:00 Glucose (Glutose) 15 gm Q15M PRN PO DECREASED GLUCOSE; Start 07/13/17 at 16:00 Glucose (Glutose) 22.5 gm Q15M PRN PO DECREASED GLUCOSE; Start 07/13/17 at 16: 00 Dextrose (D50w Syringe) 25 ml Q15M PRN IV DECREASED GLUCOSE; Start 07/13/17 at 16:00 Dextrose (D50w Syringe) 50 ml Q15M PRN IV DECREASED GLUCOSE; Start 07/13/17 at 16:00 Glucagon (Glucagen) 1 mg Q15M PRN IM DECREASED GLUCOSE; Start 07/13/17 at 16: 00 Glucose (Glutose) 15 gm Q15M PRN BUCCAL DECREASED GLUCOSE; Start 07/13/17 at 16:00 Carvedilol 3.125 mg 3.125 mg BID PO Last administered on 07/14/17 08:30; Admin Dose 3.125 MG; Start 07/13/17 at 21:00 Aztreonam (Azactam 1gm/NS (Pmx)) 50 ml @ 100 mls/hr Q12 IVPB Last administered on 07/14/17 20:39; Admin Dose 100 MLS/HR; Start 07/14/17 at 12: 30 Enoxaparin Sodium (Lovenox) 60 mg DAILY SC ; Start 07/15/17 at 09:00 Insulin Glargine (Lantus) 20 unit DAILY@08 SC Last administered on 07/15/17 08:19; Admin Dose 20 UNIT; Start 07/15/17 at 08:00 ROSALIND MULLEN MD Jul 15, 2017 10:38
--- NOTE | 2017-07-15 10:46 | PN ---
DATE: 07/15/2017 SUBJECTIVE: The patient is stable. No events overnight. OBJECTIVE: VITAL SIGNS: Blood pressure is 120/94, temperature 97.8, pulse 77, respiration 18. HEENT: Head is normocephalic. NECK: Supple. HEART: Regular rate. LUNGS: Show diminished breath sounds at base. ABDOMEN: Soft, nontender to palpation without rebound or guarding. EXTREMITIES: Negative for clubbing, cyanosis, no edema. DERMATOLOGIC: No rashes. MUSCULOSKELETAL: No joint effusions. NEUROLOGIC: No change in exam. MEDICATIONS: The patient's medications have been reviewed. LABORATORY DATA: Shows white count 10.3, hemoglobin 9.8, hematocrit 30.9, platelet count is 338. S odium 143, potassium 3.4, BUN 34, creatinine 1.41. ASSESSMENT AND PLAN: 1. Nonoliguric acute kidney injury with unknown baseline creatinine. Etiology of acute kidney inju ry was secondary to hemodynamics and septic acute kidney injury. The patient's renal function has d eclined in the last 24 hours, patient's urinalysis does show significant pyuria, hematuria likely du e to underlying infection. The possibility of an interstitial process is a consideration. At this point, would continue current treatment plan, supportive care, renally dose all meds. 2. Hypokalemia. We will replete with potassium chloride. 3. Anemia. Monitor hemoglobin and hematocrit levels. 4. Mineral bone disorder, monitor calcium and phosphorus levels. 5. Severe sepsis secondary to pneumonia. Continue current antibiotic regimen and follow up with in fectious disease. 6. Non-ST elevation myocardial infarction. Continue current treatment plan. Follow up with cardio logy. 7. Acute respiratory failure secondary to pneumonia and congestive heart failure. The patient is c urrently off BiPAP. Continue to monitor. 8. Acute encephalopathy and dementia. Etiology is toxic metabolic. 9. Hypertension. Continue current blood pressure regimen. 10. Diabetes. Continue Accu-Cheks, insulin sliding scale. Dictated By: DYLAN COHN DO NR/NTS Conf#: [id number] DID#: [id number]
[2017-07-15] MEDS: ASPIRIN 81 MG TAB PO SCH (10:49)
[2017-07-15] MEDS: ENOXAPARIN 60 MG/0.6 ML SYG SC SCH (10:59)
--- NOTE | 2017-07-15 12:24 | CONS ---
Date/Time of Note Date/Time of Note DATE: 07/15/17 TIME: 12:22 Assessment/Plan Assessment/Plan Additional Assessment/Plan Assessment and recommendations; 1. Patient admitted with bilateral pneumonia currently on appropriate antibiotic regimen. 2. Advanced dementia. Continue current treatment. Obtain follow-up chest x-ray in 24 hours. Consultation Date/Type/Reason Admit Date/Time Jul 13, 2017 at 01:24 Initial Consult Date 07/14/17 Type of Consultation: Pulmonary 24 HR Interval Summary Free Text/Dictation Patient's condition remains stable. Remains awake and alert. Patient however has advanced dementia and is not making any sense whatsoever what she is talking. General exam; elderly woman, awake. Currently in no distress. Exam/Review of Systems Vital Signs Vitals Vital Signs Date Time Temp Pulse Resp B/P Pulse Ox O2 Delivery O2 Flow Rate FiO2 07/15/17 12:17 98.3 97 18 97/60 93 07/15/17 01:57 21 07/13/17 16:00 Non Rebreather 15.0 Intake and Output 07/14/17 07/14/17 07/15/17 15:00 23:00 07:00 Intake Total 740 ml 120 ml Output Total 1200 ml 800 ml Balance -460 ml -680 ml Exam HEENT exam; supple neck, no JVD. No lymphadenopathy. Midline trachea. No thyromegaly. Patient is edentulous. Chest exam; diminished but clear breath sounds. S1-S2 audible, no murmurs. Regular rhythm. Abdomen exam; soft, no organomegaly. Bowel sounds audible. Extremity exam; no peripheral edema. BONE CRUSHER exam; patient is awake and moves all 4 extremities spontaneously. Results Result Diagram: 07/15/17 0700 07/15/17 0700 Results 24 hrs Laboratory Tests Test 07/14/17 17:15 07/14/17 20:26 07/14/17 21:27 07/14/17 22:53 Bedside Glucose 204 169 Creatine Kinase 134 # Creatine Kinase Index 3.3 Creatinine Kinase MB (Mass) 4.45 H Troponin I 8.390 *H Urine Color YELLOW Urine Clarity SLIGHTLY CLOUDY A Urine pH 5.0 Urine Specific [place] 1.010 Urine Ketones NEGATIVE Urine Nitrite NEGATIVE Urine Bilirubin NEGATIVE Urine Urobilinogen NEGATIVE Urine Leukocyte Esterase 2+ H Urine Microscopic RBC > 182 H Urine Microscopic WBC 40 H Urine Mucus FEW A Urine Hemoglobin 3+ H Urine Glucose NEGATIVE Urine Total Protein 2+ H Test 07/14/17 23:35 07/15/17 01:08 07/15/17 07:00 07/15/17 07:53 Troponin I 10.400 *H 8.420 *H Creatine Kinase 125 Creatine Kinase Index 2.7 Creatinine Kinase MB (Mass) 3.41 H White Blood Count 10.3 Red Blood Count 3.95 L Hemoglobin 9.8 L Hematocrit 30.9 L Mean Corpuscular Volume 78.2 L Mean Corpuscular Hemoglobin 24.8 L Mean Corpuscular Hemoglobin Concent 31.7 L Red Cell Distribution Width 14.7 H Platelet Count 338 Mean Platelet Volume 10.4 Neutrophils % 75.1 Lymphocytes % 13.8 L Monocytes % 6.2 Eosinophils % 3.9 Basophils % 0.5 Nucleated Red Blood Cells % 0.0 Neutrophils # 7.7 H Lymphocytes # 1.4 Monocytes # 0.6 Eosinophils # 0.4 Basophils # 0.1 Nucleated Red Blood Cells # 0.0 Sodium Level 143 Potassium Level 3.4 L Chloride Level 104 Carbon Dioxide Level 29 Anion Gap 13 Blood Urea Nitrogen 34 H Creatinine 1.41 H Glucose Level 214 Calcium Level 9.4 Phosphorus Level 2.7 Magnesium Level 1.7 Ferritin 58.5 Total Bilirubin 0.4 Direct Bilirubin 0.00 Indirect Bilirubin 0.4 Aspartate Amino Transf (AST/SGOT) 38 Alanine Aminotransferase (ALT/SGPT) 23 Alkaline Phosphatase 78 Total Protein 7.5 Albumin 3.4 Globulin 4.10 H Albumin/Globulin Ratio 0.82 Triglycerides Level 185 H Cholesterol Level 230 H LDL Cholesterol, Calculated 156 HDL Cholesterol 37 Cholesterol/HDL Ratio 6.2 Thyroid Stimulating Hormone (TSH) 0.064 L Bedside Glucose 215 Medications Medications Current Medications Ondansetron HCl (Zofran Inj) 4 mg Q6H PRN IV NAUSEA AND/OR VOMITING; Start at 15:30 Acetaminophen (Tylenol Tab) 650 mg Q6H PRN PO PAIN LEVEL 1-3 OR FEVER; Start 07/13/17 at 15:30 Acetaminophen/ Hydrocodone Bitart ([place] (5/325)) 1 tab Q6H PRN PO MODERATE PAIN LEVEL 4-6; Start 07/13/17 at 15:30 Morphine Sulfate 2 mg 2 mg Q4H PRN IV SEVERE PAIN LEVEL 7-10; Start 07/13/17 at 15:30 Levofloxacin/ Dextrose (Levaquin 750 Mg/ D5W 150 ml (Pmx)) 150 ml @ 100 mls/hr Q48H IVPB Last administered on 07/13/17 16:40; Admin Dose 100 MLS/HR; Start 07/13/17 at 15:30 Aspirin (Aspirin) 81 mg DAILY PO Last administered on 07/15/17 10:49; Admin Dose 81 MG; Start 07/15/17 at 09:00 Nitroglycerin (Nitroglycerin (Sl Tab) 0.4 Mg) 1 tab Q5M PRN SL CHEST PAIN; Start 07/13/17 at 15:30 Diagnostic Test (Pha) (Accu-Chek) 1 ea 02 XX Last administered on 07/14/17 20 :20; Admin Dose 1 EA; Start 07/14/17 at 02:00 Miscellaneous Information 1 ea NOTE XX ; Start 07/13/17 at 16:00 Glucose (Glutose) 15 gm Q15M PRN PO DECREASED GLUCOSE; Start 07/13/17 at 16:00 Glucose (Glutose) 22.5 gm Q15M PRN PO DECREASED GLUCOSE; Start 07/13/17 at 16: 00 Dextrose (D50w Syringe) 25 ml Q15M PRN IV DECREASED GLUCOSE; Start 07/13/17 at 16:00 Dextrose (D50w Syringe) 50 ml Q15M PRN IV DECREASED GLUCOSE; Start 07/13/17 at 16:00 Glucagon (Glucagen) 1 mg Q15M PRN IM DECREASED GLUCOSE; Start 07/13/17 at 16: 00 Glucose (Glutose) 15 gm Q15M PRN BUCCAL DECREASED GLUCOSE; Start 07/13/17 at 16:00 Carvedilol 3.125 mg 3.125 mg BID PO Last administered on 07/15/17 10:53; Admin Dose 3.125 MG; Start 07/13/17 at 21:00 Aztreonam (Azactam 1gm/NS (Pmx)) 50 ml @ 100 mls/hr Q12 IVPB Last administered on 07/15/17 10:35; Admin Dose 100 MLS/HR; Start 07/14/17 at 12: 30 Enoxaparin Sodium (Lovenox) 60 mg DAILY SC Last administered on 07/15/17 10: 59; Admin Dose 60 MG; Start 07/15/17 at 09:00 Insulin Glargine (Lantus) 20 unit DAILY@08 SC Last administered on 07/15/17t 08:19; Admin Dose 20 UNIT; Start 07/15/17 at 08:00 SHARATH HARRIS Jul 15, 2017 12:24
--- NOTE | 2017-07-15 15:03 | PN ---
DATE: 07/15/2017 SUBJECTIVE: No acute changes overnight. The patient is awake, eating lunch, looks comfortable. Sh e is afebrile. WBC today 10.3, platelets 338, no shift, no bands. BUN 34, creatinine 1.41. MICROBIOLOGY: Blood cultures had been negative. Urine culture pending. DIAGNOSTICS: Chest x-ray on admission revealed stable patchy infiltrates throughout both lungs. ANTIMICROBIALS: The patient is on levofloxacin. PHYSICAL EXAMINATION: GENERAL: This is a fragile, elderly woman who is awake, in no distress. HEENT: Head atraumatic, normocephalic. Sclerae anicteric. Buccal mucosa dry. NECK: Supple. CHEST: Rise symmetrical. Breath sounds clear. HEART: S1, S2. ABDOMEN: Soft. Bowel tones present. EXTREMITIES: Without cyanosis. ASSESSMENT: 1. Resolving sepsis. 2. Bilateral pneumonia. 3. Urinary tract infection as per urinalysis. 4. Dementia. 5. Acute possibly on chronic kidney disease. PLAN: The patient remains stable. WBC tracing down, covered with appropriate antibiotics. We are going to send urine culture. Dictated By: BORIS WILSON ACTING MANAGER for LELE DE LEON MD NI/NTS Conf#: [id number] DID#: [id number]
[2017-07-15 17:14] LABS: ADD UMIC YES; UR ASCORBIC ACID NEGATIVE (NEGATIVE); UR BACTERIA MODERATE /HPF (NONE SEEN); UR BILIRUBIN (Dip) NEGATIVE (NEGATIVE); UR BLOOD (Dip) 3+ mg/dL (NEGATIVE); UR BUDDING YEAST MANY /HPF (NONE SEEN); UR CLARITY TURBID (CLEAR); UR COLOR AMBER (YELLOW); UR GLUCOSE (Dip) NEGATIVE (NEGATIVE); UR KETONES (Dip) NEGATIVE (NEGATIVE); UR LEUKOCYTE ESTERASE (Dip) 2+ Leu/ul (NEGATIVE); UR NITRITE (Dip) NEGATIVE (NEGATIVE); UR RBC > 182 /HPF (0-5); UR SPECIFIC GRAVITY (Dip) 1.016 (1.003-1.030); UR SQUAMOUS EPITHELIAL CELL FEW /HPF (FEW); UR TOTAL PROTEIN (Dip) 2+ mg/dl (NEGATIVE); UR UROBILINOGEN (Dip) NEGATIVE (NEGATIVE)
[2017-07-15] MEDS: LEVOFLOXACIN 750MG/D5W (PMX) 150 ML IVPB SCH (18:19)
--- NOTE | 2017-07-15 18:31 | PN ---
Date/Time of Note Date/Time of Note DATE: 07/15/17 TIME: 18:29 Assessment/Plan VTE Prophylaxis VTE Prophylaxis Intervention: LMWH Lines/Catheters IV Catheter Type (from Nrs): Saline Lock Urinary Cath still in place: Yes Reason Cath still needed: urinary retention Assessment/Plan Chief Complaint/Hosp Course 77 yo female with dementia, DMII who presented with pneumonia, acute decompensated CHF and sepsis with NSTEMI type II NSTEMI: - Suspect this was demand ischemia, though likely does have underlying CAD - Aspirin/statin Pneumonia: - Abx course CHF: - Diuresis, fairly euvolemic Dementia: - stable need to obtain collateral from family Stable to discharge in coming days Problems: Subjective 24 Hr Interval Summary Free Text/Dictation Patient stable No respiratory compliants Unable to provide coherent histroy Exam/Review of Systems Vital Signs Vitals Vital Signs Date Time Temp Pulse Resp B/P Pulse Ox O2 Delivery O2 Flow Rate FiO2 07/15/17 17:06 92 21 07/15/17 16:09 98.6 81 17 100/58 07/13/17 16:00 Non Rebreather 15.0 Intake and Output 07/14/17 07/14/17 07/15/17 15:00 23:00 07:00 Intake Total 740 ml 120 ml Output Total 1200 ml 800 ml Balance -460 ml -680 ml Exam Constitutional: alert, oriented, well developed Psych: nl mood/affect, no complaints Head: atraumatic, normocephalic Eyes: EOMI, PERRL, nl conjunctiva, nl lids, nl sclera ENMT: nl external ears & nose, nl lips & teeth, nl nasal mucosa & septum Neck: non-tender, supple Respiratory: clear to auscultation, normal air movement Cardiovascular: nl pulses, regular rate and rhythm Gastrointestinal: nl liver, spleen, non-tender, soft Musculoskeletal: nl extremities to inspection, nl gait and stance Extremities: normal pulses Neurological: POISER BALANCE II-XII intact, nl mental status, nl speech, nl strength Skin: nl turgor, No rash or lesions Lymph: nl lymph nodes Results Result Diagram: 07/15/17 0700 07/15/17 0700 Results 24 hrs Laboratory Tests Test 07/14/17 20:26 07/14/17 21:27 07/14/17 22:53 07/14/17 23:35 Bedside Glucose 169 Creatine Kinase 134 # Creatine Kinase Index 3.3 Creatinine Kinase MB (Mass) 4.45 H Troponin I 8.390 *H 10.400 *H Urine Color YELLOW Urine Clarity SLIGHTLY CLOUDY A Urine pH 5.0 Urine Specific [place] 1.010 Urine Ketones NEGATIVE Urine Nitrite NEGATIVE Urine Bilirubin NEGATIVE Urine Urobilinogen NEGATIVE Urine Leukocyte Esterase 2+ H Urine Microscopic RBC > 182 H Urine Microscopic WBC 40 H Urine Mucus FEW A Urine Hemoglobin 3+ H Urine Glucose NEGATIVE Urine Total Protein 2+ H Test 07/15/17 01:08 07/15/17 07:00 07/15/17 07:53 07/15/17 12:31 Creatine Kinase 125 Creatine Kinase Index 2.7 Creatinine Kinase MB (Mass) 3.41 H Troponin I 8.420 *H White Blood Count 10.3 Red Blood Count 3.95 L Hemoglobin 9.8 L Hematocrit 30.9 L Mean Corpuscular Volume 78.2 L Mean Corpuscular Hemoglobin 24.8 L Mean Corpuscular Hemoglobin Concent 31.7 L Red Cell Distribution Width 14.7 H Platelet Count 338 Mean Platelet Volume 10.4 Neutrophils % 75.1 Lymphocytes % 13.8 L Monocytes % 6.2 Eosinophils % 3.9 Basophils % 0.5 Nucleated Red Blood Cells % 0.0 Neutrophils # 7.7 H Lymphocytes # 1.4 Monocytes # 0.6 Eosinophils # 0.4 Basophils # 0.1 Nucleated Red Blood Cells # 0.0 Sodium Level 143 Potassium Level 3.4 L Chloride Level 104 Carbon Dioxide Level 29 Anion Gap 13 Blood Urea Nitrogen 34 H Creatinine 1.41 H Glucose Level 214 Calcium Level 9.4 Phosphorus Level 2.7 Magnesium Level 1.7 Ferritin 58.5 Total Bilirubin 0.4 Direct Bilirubin 0.00 Indirect Bilirubin 0.4 Aspartate Amino Transf (AST/SGOT) 38 Alanine Aminotransferase (ALT/SGPT) 23 Alkaline Phosphatase 78 Total Protein 7.5 Albumin 3.4 Globulin 4.10 H Albumin/Globulin Ratio 0.82 Triglycerides Level 185 H Cholesterol Level 230 H LDL Cholesterol, Calculated 156 HDL Cholesterol 37 Cholesterol/HDL Ratio 6.2 Thyroid Stimulating Hormone (TSH) 0.064 L Bedside Glucose 215 191 Test 07/15/17 15:40 07/15/17 17:33 Urine Color [place] Urine Clarity TURBID A Urine pH 5.0 Urine Specific [place] 1.016 Urine Ketones NEGATIVE Urine Nitrite NEGATIVE Urine Bilirubin NEGATIVE Urine Urobilinogen NEGATIVE Urine Leukocyte Esterase 2+ H Urine Microscopic RBC > 182 H Urine Microscopic WBC > 182 H Urine Squamous Epithelial Cells FEW Urine Bacteria MODERATE Urine Yeast (Budding) MANY A Urine Hemoglobin 3+ H Urine Random Creatinine 129.71 Urine Random Sodium 42 Urine Glucose NEGATIVE Urine Total Protein 325.0 H Bedside Glucose 128 Medications Medications Current Medications Ondansetron HCl (Zofran Inj) 4 mg Q6H PRN IV NAUSEA AND/OR VOMITING; Start at 15:30 Acetaminophen (Tylenol Tab) 650 mg Q6H PRN PO PAIN LEVEL 1-3 OR FEVER; Start 07/13/17 at 15:30 Acetaminophen/ Hydrocodone Bitart ([place] (5/325)) 1 tab Q6H PRN PO MODERATE PAIN LEVEL 4-6; Start 07/13/17 at 15:30 Morphine Sulfate 2 mg 2 mg Q4H PRN IV SEVERE PAIN LEVEL 7-10; Start 07/13/17 at 15:30 Levofloxacin/ Dextrose (Levaquin 750 Mg/ D5W 150 ml (Pmx)) 150 ml @ 100 mls/hr Q48H IVPB Last administered on 07/15/17 18:19; Admin Dose 100 MLS/HR; Start 07/13/17 at 15:30 Aspirin (Aspirin) 81 mg DAILY PO Last administered on 07/15/17 10:49; Admin Dose 81 MG; Start 07/15/17 at 09:00 Nitroglycerin (Nitroglycerin (Sl Tab) 0.4 Mg) 1 tab Q5M PRN SL CHEST PAIN; Start 07/13/17 at 15:30 Diagnostic Test (Pha) (Accu-Chek) 1 ea 02 XX Last administered on 07/14/17 20 :20; Admin Dose 1 EA; Start 07/14/17 at 02:00 Miscellaneous Information 1 ea NOTE XX ; Start 07/13/17 at 16:00 Glucose (Glutose) 15 gm Q15M PRN PO DECREASED GLUCOSE; Start 07/13/17 at 16:00 Glucose (Glutose) 22.5 gm Q15M PRN PO DECREASED GLUCOSE; Start 07/13/17 at 16: 00 Dextrose (D50w Syringe) 25 ml Q15M PRN IV DECREASED GLUCOSE; Start 07/13/17 at 16:00 Dextrose (D50w Syringe) 50 ml Q15M PRN IV DECREASED GLUCOSE; Start 07/13/17 at 16:00 Glucagon (Glucagen) 1 mg Q15M PRN IM DECREASED GLUCOSE; Start 07/13/17 at 16: 00 Glucose (Glutose) 15 gm Q15M PRN BUCCAL DECREASED GLUCOSE; Start 07/13/17 at 16:00 Carvedilol 3.125 mg 3.125 mg BID PO Last administered on 07/15/17 10:53; Admin Dose 3.125 MG; Start 07/13/17 at 21:00 Aztreonam (Azactam 1gm/NS (Pmx)) 50 ml @ 100 mls/hr Q12 IVPB Last administered on 07/15/17 10:35; Admin Dose 100 MLS/HR; Start 07/14/17 at 12: 30 Enoxaparin Sodium (Lovenox) 60 mg DAILY SC Last administered on 07/15/17 10: 59; Admin Dose 60 MG; Start 07/15/17 at 09:00 Insulin Glargine (Lantus) 20 unit DAILY@08 SC Last administered on 07/15/17 08:19; Admin Dose 20 UNIT; Start 07/15/17 at 08:00 EUGENIE STRONG MD Jul 15, 2017 18:31
[2017-07-16] VITALS (10 sets, daily range): BP systolic 93–127; BP diastolic 52–66; PULSE 81–92; RESP 17–18
[2017-07-16] MEDS: ACCU-CHEK XX SCH (02:00)
[2017-07-16] MEDS: FUROSEMIDE 40 MG INJ IV SCH (05:20)
[2017-07-16] MEDS: INSULIN ASPART [NOVOLOG] 3 ML PEN SC SCH ×4 (07:52→21:00)
[2017-07-16] MEDS: INSULIN GLARGINE [LANtus] 3 ML PEN SC SCH (07:56)
[2017-07-16] MEDS: ASPIRIN 81 MG TAB PO SCH (08:03)
[2017-07-16] MEDS: ENOXAPARIN 60 MG/0.6 ML SYG SC SCH (08:05)
[2017-07-16] MEDS: AZTREONAM 1 GM/NS (PMX) 50 ML IVPB SCH ×2 (08:06→21:39)
[2017-07-16 09:48] LABS: BASOPHILS % 0.4 % (0.0-2.0); EOSINOPHILS # 0.5 10^3/ul (0.0-0.5); EOSINOPHILS % 4.7 % (0.0-7.0); HEMATOCRIT 31.8 % (37.0-47.0); LYMPHOCYTES # 1.4 10^3/ul (0.8-2.9); LYMPHOCYTES % 14.7 % (15.0-51.0); MEAN CORPUSCULAR HEMOGLOBIN 24.8 pg (29.0-33.0); MEAN CORPUSCULAR HGB CONC 31.4 g/dl (32.0-37.0); MEAN CORPUSCULAR VOLUME 78.7 fl (82.0-101.0); MEAN PLATELET VOLUME 10.1 fl (7.4-10.4); MONOCYTE # 0.6 10^3/ul (0.3-0.9); MONOCYTES % 6.5 % (0.0-11.0); NEUTROPHIL # 7.1 10^3/ul (1.6-7.5); NEUTROPHILS % 73.1 % (39.0-77.0); PLATELET COUNT 373 10^3/UL (140-415); RED BLOOD COUNT 4.04 10^6/ul (4.20-5.40); RED CELL DISTRIBUTION WIDTH 14.7 % (11.5-14.5); WHITE BLOOD COUNT 9.7 10^3/ul (4.8-10.8)
--- NOTE | 2017-07-16 09:49 | PN ---
DATE: 07/16/2017 SUBJECTIVE: The patient is stable. No events overnight. OBJECTIVE: VITAL SIGNS: Blood pressure 117/56, temperature 97.8, pulse 88, respiration 18. HEENT: Head is normocephalic. NECK: Supple. HEART: Regular rate. LUNGS: Show diminished breath sounds at the base. ABDOMEN: Soft, nontender to palpation. No rebound or guarding. EXTREMITIES: Negative for clubbing, cyanosis, no edema. DERMATOLOGIC: No rashes. MUSCULOSKELETAL: No joint effusions. NEUROLOGIC: No change in exam. MEDICATIONS: The patient's medications have been reviewed. LABORATORY DATA: Laboratory data has been reviewed. Laboratory data for 07/16/2017 is pending. Re peat urinalysis shows a protein creatinine ratio approximately 3 grams per gram of creatinine with p yuria and hematuria. ASSESSMENT AND PLAN: 1. Nonoliguric acute kidney injury with unknown baseline creatinine. Etiology of acute kidney inju ry is secondary to sepsis and hemodynamics. The patient's urinalysis, however, continues to show py uria, hematuria. This may have been due to [place] trauma urinary tract infection. The possibility o f interstitial nephritis or active sediment is a consideration. Plan is to followup renal panel tod ay. Otherwise, continue supportive care, renally dose all medications. Continue antibiotic therapy . Monitor closely. 2. Hypokalemia. Continue to monitor and replete. 3. Anemia. Monitor hemoglobin and hematocrit levels. 4. Mineral bone disorder. Continue to monitor calcium and phosphorus levels. 5. Severe sepsis secondary to pneumonia, urinary tract infection. Continue current antibiotic zenobia men. 6. Non-ST elevation myocardial infarction. Continue current treatment plan. Follow up with cardio logy. 7. Acute respiratory failure secondary to pneumonia and congestive heart failure, improved. The pa tient is off BiPAP. 8. Hypertension. Continue current blood pressure regimen. 9. Diabetes. Continue Accu-Cheks, insulin sliding scale. Dictated By: DYLAN CORTEZ/SANTOSH Conf#: [id number] DID#: [id number]
[2017-07-16 10:16] LABS: ALBUMIN 3.5 g/dl (3.3-4.9); ALBUMIN/GLOBULIN RATIO 0.83; BILIRUBIN,INDIRECT 0.3 mg/dl (0-1.1); BILIRUBIN,TOTAL 0.3 mg/dl (0.2-1.3); CALCIUM 9.5 mg/dl (8.4-10.2); CREATININE 1.46 mg/dl (0.44-1.00); POTASSIUM 3.6 mmol/L (3.5-5.1); TOTAL PROTEIN 7.7 g/dl (6.1-8.1)
[2017-07-16 11:25] LABS: MAGNESIUM 1.9 mg/dl (1.7-2.5); PHOSPHORUS 3.7 mg/dl (2.5-4.9)
[2017-07-16] MEDS: FLUCONAZOLE 100 MG/NS (PMX) 50 ML IVPB SCH (11:34)
--- NOTE | 2017-07-16 12:25 | CONS ---
Date/Time of Note Date/Time of Note DATE: 07/16/17 TIME: 12:23 Assessment/Plan Assessment/Plan Additional Assessment/Plan Assessment and recommendations; 1. Patient admitted with bilateral pneumonia with significant clinical improvement. 2. Advanced dementia. Continue current treatment. Will obtain follow-up chest x-ray. Consultation Date/Type/Reason Admit Date/Time Jul 13, 2017 at 01:24 Initial Consult Date 07/14/17 Type of Consultation: Pulmonary 24 HR Interval Summary Free Text/Dictation Patient's condition remained stable. Remains awake and alert. General exam; elderly woman, awake, currently in no distress. Exam/Review of Systems Vital Signs Vitals Vital Signs Date Time Temp Pulse Resp B/P Pulse Ox O2 Delivery O2 Flow Rate FiO2 07/16/17 12:00 81 07/16/17 11:27 97.9 18 120/59 96 07/15/17 17:06 21 07/13/17 16:00 Non Rebreather 15.0 Intake and Output 07/15/17 07/15/17 07/16/17 15:00 23:00 07:00 Intake Total 250 ml 250 ml Output Total 250 ml Balance 0 ml 250 ml Exam HEENT exam; supple neck, no JVD. No lymphadenopathy. Midline trachea. No thyromegaly. Pharynx is clear. Patient is edentulous. Chest exam; clear to auscultation. S1-S2 audible, no murmurs. Regular rhythm. Abdomen exam; soft, nontender. No organomegaly. Bowel sounds audible. Extremity exam; no peripheral edema. 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 Results Result Diagram: 07/16/17 0816 07/16/17 0816 Results 24 hrs Laboratory Tests Test 07/15/17 12:31 07/15/17 15:40 07/15/17 17:33 07/15/17 20:52 Bedside Glucose 191 128 135 Urine Color [place] Urine Clarity TURBID A Urine pH 5.0 Urine Specific [place] 1.016 Urine Ketones NEGATIVE Urine Nitrite NEGATIVE Urine Bilirubin NEGATIVE Urine Urobilinogen NEGATIVE Urine Leukocyte Esterase 2+ H Urine Microscopic RBC > 182 H Urine Microscopic WBC > 182 H Urine Squamous Epithelial Cells FEW Urine Bacteria MODERATE Urine Yeast (Budding) MANY A Urine Hemoglobin 3+ H Urine Random Creatinine 129.71 Urine Random Sodium 42 Urine Glucose NEGATIVE Urine Total Protein 325.0 H Test 07/16/17 07:51 07/16/17 08:16 07/16/17 11:29 Bedside Glucose 128 170 White Blood Count 9.7 Red Blood Count 4.04 L Hemoglobin 10.0 L Hematocrit 31.8 L Mean Corpuscular Volume 78.7 L Mean Corpuscular Hemoglobin 24.8 L Mean Corpuscular Hemoglobin Concent 31.4 L Red Cell Distribution Width 14.7 H Platelet Count 373 Mean Platelet Volume 10.1 Neutrophils % 73.1 Lymphocytes % 14.7 L Monocytes % 6.5 Eosinophils % 4.7 Basophils % 0.4 Nucleated Red Blood Cells % 0.0 Neutrophils # 7.1 Lymphocytes # 1.4 Monocytes # 0.6 Eosinophils # 0.5 Basophils # 0.0 Nucleated Red Blood Cells # 0.0 Sodium Level 143 Potassium Level 3.6 Chloride Level 105 Carbon Dioxide Level 28 Anion Gap 14 Blood Urea Nitrogen 44 H Creatinine 1.46 H Glucose Level 120 # Calcium Level 9.5 Phosphorus Level 3.7 Magnesium Level 1.9 Total Bilirubin 0.3 Direct Bilirubin 0.00 Indirect Bilirubin 0.3 Aspartate Amino Transf (AST/SGOT) 26 Alanine Aminotransferase (ALT/SGPT) 30 Alkaline Phosphatase 72 Total Protein 7.7 Albumin 3.5 Globulin 4.20 H Albumin/Globulin Ratio 0.83 Free Thyroxine 2.21 H Medications Medications Current Medications Ondansetron HCl (Zofran Inj) 4 mg Q6H PRN IV NAUSEA AND/OR VOMITING; Start at 15:30 Acetaminophen (Tylenol Tab) 650 mg Q6H PRN PO PAIN LEVEL 1-3 OR FEVER; Start 07/13/17 at 15:30 Acetaminophen/ Hydrocodone Bitart ([place] (5/325)) 1 tab Q6H PRN PO MODERATE PAIN LEVEL 4-6; Start 07/13/17 at 15:30 Morphine Sulfate 2 mg 2 mg Q4H PRN IV SEVERE PAIN LEVEL 7-10; Start 07/13/17 at 15:30 Levofloxacin/ Dextrose (Levaquin 750 Mg/ D5W 150 ml (Pmx)) 150 ml @ 100 mls/hr Q48H IVPB Last administered on 07/15/17 18:19; Admin Dose 100 MLS/HR; Start 07/13/17 at 15:30 Aspirin (Aspirin) 81 mg DAILY PO Last administered on 07/16/17 08:03; Admin Dose 81 MG; Start 07/15/17 at 09:00 Nitroglycerin (Nitroglycerin (Sl Tab) 0.4 Mg) 1 tab Q5M PRN SL CHEST PAIN; Start 07/13/17 at 15:30 Diagnostic Test (Pha) (Accu-Chek) 1 ea 02 XX Last administered on 07/14/17 20 :20; Admin Dose 1 EA; Start 07/14/17 at 02:00 Miscellaneous Information 1 ea NOTE XX ; Start 07/13/17 at 16:00 Glucose (Glutose) 15 gm Q15M PRN PO DECREASED GLUCOSE; Start 07/13/17 at 16:00 Glucose (Glutose) 22.5 gm Q15M PRN PO DECREASED GLUCOSE; Start 07/13/17 at 16: 00 Dextrose (D50w Syringe) 25 ml Q15M PRN IV DECREASED GLUCOSE; Start 07/13/17 at 16:00 Dextrose (D50w Syringe) 50 ml Q15M PRN IV DECREASED GLUCOSE; Start 07/13/17 at 16:00 Glucagon (Glucagen) 1 mg Q15M PRN IM DECREASED GLUCOSE; Start 07/13/17 at 16: 00 Glucose (Glutose) 15 gm Q15M PRN BUCCAL DECREASED GLUCOSE; Start 07/13/17 at 16:00 Carvedilol 3.125 mg 3.125 mg BID PO Last administered on 07/16/17 08:04; Admin Dose 3.125 MG; Start 07/13/17 at 21:00 Aztreonam (Azactam 1gm/NS (Pmx)) 50 ml @ 100 mls/hr Q12 IVPB Last administered on 07/16/17 08:06; Admin Dose 100 MLS/HR; Start 07/14/17 at 12: 30 Enoxaparin Sodium (Lovenox) 60 mg DAILY SC Last administered on 07/16/17 08: 05; Admin Dose 60 MG; Start 07/15/17 at 09:00 Insulin Glargine 20 unit 20 unit DAILY@08 SC Last administered on 07/16/17 07 :56; Admin Dose 20 UNIT; Start 07/15/17 at 08:00 Fluconazole/ Sodium Chloride (Diflucan 100 Mg/ NS (Pmx)) 50 ml @ 50 mls/hr Q24H IVPB Last administered on 10/18/17at 11:34; Admin Dose 50 MLS/HR; Start at 12:00 SHARATH HARRIS Jul 16, 2017 12:25
--- NOTE | 2017-07-16 12:53 | RADRPT ---
PROCEDURE: XR Chest. CLINICAL INDICATION: Pneumonia TECHNIQUE: Single AP portable chest. COMPARISON: 07/13/2017 Chest x-ray FINDINGS: The cardiac silhouette is at the upper limits of normal in size. Atherosclerotic calcification of t he aorta. There is near complete resolution of bilateral patchy interstitial and alveolar air space opacities noted on the prior study of 07/13/2017 most compatible with resolving pneumonia the lungs are otherwise clear without pleural effusion or focal consolidation. No pneumothorax. The osseous st ructures and soft tissues are unremarkable. IMPRESSION: 1. Resolution of bilateral multi focal airspace opacities compatible with resolving pneumonia . RPTAT:AAJJ Physician Jasmine Date Time Electronically viewed and signed by Physician Jasmine on 07/16/2017 12:53 ABEL/
--- NOTE | 2017-07-16 14:08 | PN ---
DATE: 07/16/2017 SUBJECTIVE: The patient is awake, confused, looks comfortable, no fevers. WBC 9.7, no shift, no bands. BUN 44, creatinine 1.46. MICROBIOLOGY: Urine culture growing yeast. DIAGNOSTICS: Chest x-ray this morning revealed resolution of bilateral multifocal air space opaciti es compatible with resolving pneumonia. ANTIMICROBIALS: The patient is on: 1. . 2. Fluconazole. 3. Levaquin. ALLERGIES 1. PENICILLIN. 2. SULFA. PHYSICAL EXAMINATION: GENERAL: This is a chronically ill-appearing, elderly woman who is awake, in no distress. HEENT: Head atraumatic, normocephalic. Sclerae anicteric. Buccal mucosa dry. There is white thru sh present on her tongue. NECK: Supple. CHEST: Rise symmetrical. Breath sounds clear, diminished to bases. HEART: S1, S2. ABDOMEN: Soft. Bowel tones present. ASSESSMENT: 1. Resolving pneumonia. 2. Urinary tract infection. 3. Oral thrush. 4. Dementia. 5. Acute possibly on chronic kidney disease. 6. Status post sepsis present on admission. PLAN: Patient remains stable, covered with appropriate antibiotics. Chest x-ray looks better. We will add oral nystatin. Dictated By: BORIS WILSON [employer] COUNSELOR for LELE DURBIN/SANTOSH Conf#: [id number] DID#: [id number]
--- NOTE | 2017-07-16 16:27 | PN ---
Date/Time of Note Date/Time of Note DATE: 07/16/17 TIME: 16:26 Assessment/Plan VTE Prophylaxis VTE Prophylaxis Intervention: LMWH Lines/Catheters IV C[facility] Type ([facility] Sal[place] Lock Urinary Cath still in place: No Assessment/Plan Chief Complaint/Hosp Course 77 yo female with dementia, DMII who presented with pneumonia, acute decompensated CHF and sepsis with NSTEMI type II NSTEMI: - Suspect this was demand ischemia, though likely does have underlying CAD - Aspirin/statin Pneumonia: - Abx course CHF: - Diuresis, fairly euvolemic now, will convert to PO Dementia: - stable Hyperthyroid: - Continue BB - Should be repeated and followed as an outpatient Stable to discharge Problems: Subjective 24 Hr Interval Summary Free Text/Dictation Patient very pleasant, incoherent speech but very calm/no distress Exam/Review of Systems Vital Signs Vitals Vital Signs Date Time Temp Pulse Resp B/P Pulse Ox O2 Delivery O2 Flow Rate FiO2 07/16/17 16:00 82 07/16/17 15:32 97.9 18 110/66 96 07/15/17 17:06 21 07/13/17 16:00 Non Rebreather 15.0 Intake and Output 07/15/17 07/15/17 07/16/17 15:00 23:00 07:00 Intake Total 250 ml 250 ml Output Total 250 ml Balance 0 ml 250 ml Exam Constitutional: alert, oriented, well developed Results Result Diagram: 07/16/17 0816 07/16/17 0816 Results 24 hrs Laboratory Tests Test 07/15/17 17:33 07/15/17 20:52 07/16/17 07:51 07/16/17 08:16 Bedside Glucose 128 135 128 White Blood Count 9.7 Red Blood Count 4.04 L Hemoglobin 10.0 L Hematocrit 31.8 L Mean Corpuscular Volume 78.7 L Mean Corpuscular Hemoglobin 24.8 L Mean Corpuscular Hemoglobin Concent 31.4 L Red Cell Distribution Width 14.7 H Platelet Count 373 Mean Platelet Volume 10.1 Neutrophils % 73.1 Lymphocytes % 14.7 L Monocytes % 6.5 Eosinophils % 4.7 Basophils % 0.4 Nucleated Red Blood Cells % 0.0 Neutrophils # 7.1 Lymphocytes # 1.4 Monocytes # 0.6 Eosinophils # 0.5 Basophils # 0.0 Nucleated Red Blood Cells # 0.0 Sodium Level 143 Potassium Level 3.6 Chloride Level 105 Carbon Dioxide Level 28 Anion Gap 14 Blood Urea Nitrogen 44 H Creatinine 1.46 H Glucose Level 120 # Calcium Level 9.5 Phosphorus Level 3.7 Magnesium Level 1.9 Total Bilirubin 0.3 Direct Bilirubin 0.00 Indirect Bilirubin 0.3 Aspartate Amino Transf (AST/SGOT) 26 Alanine Aminotransferase (ALT/SGPT) 30 Alkaline Phosphatase 72 Total Protein 7.7 Albumin 3.5 Globulin 4.20 H Albumin/Globulin Ratio 0.83 Free Thyroxine 2.21 H Test 07/16/17 11:29 Bedside Glucose 170 Medications Medications Current Medications Ondansetron HCl (Zofran Inj) 4 mg Q6H PRN IV NAUSEA AND/OR VOMITING; Start at 15:30 Acetaminophen (Tylenol Tab) 650 mg Q6H PRN PO PAIN LEVEL 1-3 OR FEVER; Start 07/13/17 at 15:30 Acetaminophen/ Hydrocodone Bitart ([place] (5/325)) 1 tab Q6H PRN PO MODERATE PAIN LEVEL 4-6; Start 07/13/17 at 15:30 Morphine Sulfate 2 mg 2 mg Q4H PRN IV SEVERE PAIN LEVEL 7-10; Start 07/13/17 at 15:30 Levofloxacin/ Dextrose (Levaquin 750 Mg/ D5W 150 ml (Pmx)) 150 ml @ 100 mls/hr Q48H IVPB Last administered on 07/15/17 18:19; Admin Dose 100 MLS/HR; Start 07/13/17 at 15:30 Aspirin (Aspirin) 81 mg DAILY PO Last administered on 07/16/17 08:03; Admin Dose 81 MG; Start 07/15/17 at 09:00 Nitroglycerin (Nitroglycerin (Sl Tab) 0.4 Mg) 1 tab Q5M PRN SL CHEST PAIN; Start 07/13/17 at 15:30 Diagnostic Test (Pha) (Accu-Chek) 1 ea 02 XX Last administered on 07/14/17 20 :20; Admin Dose 1 EA; Start 07/14/17 at 02:00 Miscellaneous Information 1 ea NOTE XX ; Start 07/13/17 at 16:00 Glucose (Glutose) 15 gm Q15M PRN PO DECREASED GLUCOSE; Start 07/13/17 at 16:00 Glucose (Glutose) 22.5 gm Q15M PRN PO DECREASED GLUCOSE; Start 07/13/17 at 16: 00 Dextrose (D50w Syringe) 25 ml Q15M PRN IV DECREASED GLUCOSE; Start 07/13/17 at 16:00 Dextrose (D50w Syringe) 50 ml Q15M PRN IV DECREASED GLUCOSE; Start 07/13/17 at 16:00 Glucagon (Glucagen) 1 mg Q15M PRN IM DECREASED GLUCOSE; Start 07/13/17 at 16: 00 Glucose (Glutose) 15 gm Q15M PRN BUCCAL DECREASED GLUCOSE; Start 07/13/17 at 16:00 Carvedilol 3.125 mg 3.125 mg BID PO Last administered on 07/16/17 08:04; Admin Dose 3.125 MG; Start 07/13/17 at 21:00 Aztreonam (Azactam 1gm/NS (Pmx)) 50 ml @ 100 mls/hr Q12 IVPB Last administered on 07/16/17 08:06; Admin Dose 100 MLS/HR; Start 07/14/17 at 12: 30 Enoxaparin Sodium (Lovenox) 60 mg DAILY SC Last administered on 07/16/17 08: 05; Admin Dose 60 MG; Start 07/15/17 at 09:00 Insulin Glargine 20 unit 20 unit DAILY@08 SC Last administered on 07/16/17 07 :56; Admin Dose 20 UNIT; Start 07/15/17 at 08:00 Fluconazole/ Sodium Chloride (Diflucan 100 Mg/ NS (Pmx)) 50 ml @ 50 mls/hr Q24H IVPB Last administered on 07/16/17 11:34; Admin Dose 50 MLS/HR; Start at 12:00 Nystatin (Nystatin Susp) 5 ml QID PO ; Start 07/16/17 at 17:00 EUGENIE STRONG MD Jul 16, 2017 16:27
[2017-07-16] MEDS: NYSTATIN SUSP 5 ML CUP PO SCH ×2 (17:00→21:39)
--- NOTE | 2017-07-16 17:23 | CONS ---
Date/Time of Note Date/Time of Note DATE: 07/16/17 TIME: 17:19 Assessment/Plan Assessment/Plan Chief Complaint/Hosp Course IMPRESSION: 1. Non-ST elevation myocardial infarction in the setting of respiratory distress, mild renal insufficiency with currently down trending cardiac enzymes. No chest pain. 2. Hypertension, under reasonable control. 3. Abnormal electrocardiogram with nonspecific ST and T abnormalities in the setting of non-ST elevation myocardial infarction. 4. Probable congestive heart failure by chest x-ray, question systolic versus diastolic acute on chronic. 5. Likely associated pneumonia. 6. Renal insufficiency. 7. Diabetes mellitus, uncontrolled blood sugars. 8. Leukocytosis. 9. Anemia. Recc: -Tele -Serial ecg's -Continue asa and add plavix to maximize medical therapy -Decrease lovenox dose -Contineu BB -Continue abx's -Folloe volume status clsoely on lasix diuresis -Will f/u echo. Problems: Consultation Date/Type/Reason Admit Date/Time Jul 13, 2017 at 01:24 Initial Consult Date 07/14/17 Type of Consultation: cardiology Reason for Consultation Acute CT Referring Provider: EUGENIE STRONG MD Exam/Review of Systems Vital Signs Vitals Vital Signs Date Time Temp Pulse Resp B/P Pulse Ox O2 Delivery O2 Flow Rate FiO2 07/16/17 16:00 82 07/16/17 15:32 97.9 18 110/66 96 07/15/17 17:06 21 07/13/17 16:00 Non Rebreather 15.0 Intake and Output 07/15/17 07/15/17 07/16/17 15:00 23:00 07:00 Intake Total 250 ml 250 ml Output Total 250 ml Balance 0 ml 250 ml Exam Review of Systems: CONSTITUTIONAL: No fevers, chills. PULMONARY: No sob CARDIOVASCULAR: No chest pain/palpitations GASTROINTESTINAL: No nausea/vomiting. GENITOURINARY: No hematuria/dysuria. MUSCULOSKELETAL: No myagias/arthalgias. PSYCHIATRIC: The patient denies depression. NEUROLOGIC: confused Constitutional: other (sleeping, arousable) Psych: no complaints Head: normocephalic ENMT: mucosa pink and moist Neck: jvd (9 cm water), supple Respiratory: clear to auscultation Cardiovascular: regular rate and rhythm Gastrointestinal: non-tender, soft Musculoskeletal: muscle weakness (mild generalized) Extremities: edema (none) Neurological: confused Results Result Diagram: 07/16/17 0816 07/16/17 0816 Results 24 hrs Laboratory Tests Test 07/15/17 17:33 07/15/17 20:52 07/16/17 07:51 07/16/17 08:16 Bedside Glucose 128 135 128 White Blood Count 9.7 Red Blood Count 4.04 L Hemoglobin 10.0 L Hematocrit 31.8 L Mean Corpuscular Volume 78.7 L Mean Corpuscular Hemoglobin 24.8 L Mean Corpuscular Hemoglobin Concent 31.4 L Red Cell Distribution Width 14.7 H Platelet Count 373 Mean Platelet Volume 10.1 Neutrophils % 73.1 Lymphocytes % 14.7 L Monocytes % 6.5 Eosinophils % 4.7 Basophils % 0.4 Nucleated Red Blood Cells % 0.0 Neutrophils # 7.1 Lymphocytes # 1.4 Monocytes # 0.6 Eosinophils # 0.5 Basophils # 0.0 Nucleated Red Blood Cells # 0.0 Sodium Level 143 Potassium Level 3.6 Chloride Level 105 Carbon Dioxide Level 28 Anion Gap 14 Blood Urea Nitrogen 44 H Creatinine 1.46 H Glucose Level 120 # Calcium Level 9.5 Phosphorus Level 3.7 Magnesium Level 1.9 Total Bilirubin 0.3 Direct Bilirubin 0.00 Indirect Bilirubin 0.3 Aspartate Amino Transf (AST/SGOT) 26 Alanine Aminotransferase (ALT/SGPT) 30 Alkaline Phosphatase 72 Total Protein 7.7 Albumin 3.5 Globulin 4.20 H Albumin/Globulin Ratio 0.83 Free Thyroxine 2.21 H Test 07/16/17 11:29 07/16/17 17:07 Bedside Glucose 170 106 Medications Medications Current Medications Ondansetron HCl (Zofran Inj) 4 mg Q6H PRN IV NAUSEA AND/OR VOMITING; Start at 15:30 Acetaminophen (Tylenol Tab) 650 mg Q6H PRN PO PAIN LEVEL 1-3 OR FEVER; Start 07/13/17 at 15:30 Acetaminophen/ Hydrocodone Bitart ([place] (5/325)) 1 tab Q6H PRN PO MODERATE PAIN LEVEL 4-6; Start 07/13/17 at 15:30 Morphine Sulfate 2 mg 2 mg Q4H PRN IV SEVERE PAIN LEVEL 7-10; Start 07/13/17 at 15:30 Levofloxacin/ Dextrose (Levaquin 750 Mg/ D5W 150 ml (Pmx)) 150 ml @ 100 mls/hr Q48H IVPB Last administered on 07/15/17 18:19; Admin Dose 100 MLS/HR; Start 07/13/17 at 15:30 Aspirin (Aspirin) 81 mg DAILY PO Last administered on 07/16/17 08:03; Admin Dose 81 MG; Start 07/15/17 at 09:00 Nitroglycerin (Nitroglycerin (Sl Tab) 0.4 Mg) 1 tab Q5M PRN SL CHEST PAIN; Start 07/13/17 at 15:30 Diagnostic Test (Pha) (Accu-Chek) 1 ea 02 XX Last administered on 07/14/17 20 :20; Admin Dose 1 EA; Start 07/14/17 at 02:00 Miscellaneous Information 1 ea NOTE XX ; Start 07/13/17 at 16:00 Glucose (Glutose) 15 gm Q15M PRN PO DECREASED GLUCOSE; Start 07/13/17 at 16:00 Glucose (Glutose) 22.5 gm Q15M PRN PO DECREASED GLUCOSE; Start 07/13/17 at 16: 00 Dextrose (D50w Syringe) 25 ml Q15M PRN IV DECREASED GLUCOSE; Start 07/13/17 at 16:00 Dextrose (D50w Syringe) 50 ml Q15M PRN IV DECREASED GLUCOSE; Start 07/13/17 at 16:00 Glucagon (Glucagen) 1 mg Q15M PRN IM DECREASED GLUCOSE; Start 07/13/17 at 16: 00 Glucose (Glutose) 15 gm Q15M PRN BUCCAL DECREASED GLUCOSE; Start 07/13/17 at 16:00 Carvedilol 3.125 mg 3.125 mg BID PO Last administered on 07/16/17 08:04; Admin Dose 3.125 MG; Start 07/13/17 at 21:00 Aztreonam (Azactam 1gm/NS (Pmx)) 50 ml @ 100 mls/hr Q12 IVPB Last administered on 07/16/17 08:06; Admin Dose 100 MLS/HR; Start 07/14/17 at 12: 30 Enoxaparin Sodium (Lovenox) 60 mg DAILY SC Last administered on 07/16/17 08: 05; Admin Dose 60 MG; Start 07/15/17 at 09:00 Insulin Glargine 20 unit 20 unit DAILY@08 SC Last administered on 07/16/17 07 :56; Admin Dose 20 UNIT; Start 07/15/17 at 08:00 Fluconazole/ Sodium Chloride (Diflucan 100 Mg/ NS (Pmx)) 50 ml @ 50 mls/hr Q24H IVPB Last administered on 07/16/17 11:34; Admin Dose 50 MLS/HR; Start at 12:00 Nystatin (Nystatin Susp) 5 ml QID PO ; Start 07/16/17 at 17:00 ANGEL HSAW Jul 16, 2017 17:22
[2017-07-17] VITALS (8 sets, daily range): BP systolic 105–125; BP diastolic 58–77; PULSE 73–88; RESP 17–18
[2017-07-17] MEDS: ACCU-CHEK XX SCH (02:00)
[2017-07-17] MEDS: INSULIN ASPART [NOVOLOG] 3 ML PEN SC SCH ×2 (08:00→12:52)
[2017-07-17] MEDS: ASPIRIN 81 MG TAB PO SCH (08:26)
[2017-07-17] MEDS: NYSTATIN SUSP 5 ML CUP PO SCH ×3 (08:27→17:00)
[2017-07-17] MEDS: INSULIN GLARGINE [LANtus] 3 ML PEN SC SCH (08:32)
[2017-07-17] MEDS ORDERED: ENOXAPARIN 30 MG/0.3 ML SYG SC SCH (09:00)
[2017-07-17] MEDS ORDERED: CLOPIDOGREL 75 MG TAB PO SCH (09:00)
[2017-07-17] MEDS ORDERED: FUROSEMIDE 40 MG INJ IV SCH (09:00)
[2017-07-17] MEDS: AZTREONAM 1 GM/NS (PMX) 50 ML IVPB SCH (09:24)
--- NOTE | 2017-07-17 10:52 | PN ---
DATE: 07/17/2017 SUBJECTIVE: The patient is stable. No events overnight. No fevers, chills, nausea, vomiting. OBJECTIVE: VITAL SIGNS: Blood pressure is 121/69, pulse 87, respiration 18, temperature 97.9. HEENT: Head is normocephalic. NECK: Supple. HEART: Regular rate. LUNGS: Show diminished breath sounds at base. ABDOMEN: Soft, nontender to palpation. No rebound or guarding. EXTREMITIES: Negative for clubbing, cyanosis, no edema. DERMATOLOGIC: No rashes. MUSCULOSKELETAL: No joint effusions. NEUROLOGIC: No change in exam. MEDICATIONS: The patient's medications have been reviewed. LABORATORY DATA: Has been reviewed. New labs are pending. ASSESSMENT AND PLAN: 1. Nonoliguric acute kidney injury with unknown baseline creatinine. Etiology secondary to sepsis, hemodynamics. The patient's renal function has overall been stable with creatinine of 1.4 mg/dL. At this point, would continue current treatment plan, supportive care, renally dose all meds, contin ue current antibiotic therapy. 2. Hypokalemia, improved. 3. Anemia. Monitor hematocrit levels. 4. Mineral bone disorder. Continue to monitor calcium and phosphorus levels. 5. Severe sepsis secondary to pneumonia, urinary tract infection. Continue current antibiotic zenobia men. 6. Non-ST elevation myocardial infarction. Continue medical management and follow up with cardiolo gy. 7. Acute respiratory failure, resolved. 8. Hypertension. Continue current blood pressure regimen. 9. Diabetes. Continue Accu-Cheks, insulin sliding scale. Dictated By: DYLAN CORTEZ/SANTOSH Conf#: [id number] DID#: [id number]
--- NOTE | 2017-07-17 12:14 | CONS ---
Date/Time of Note Date/Time of Note DATE: 07/17/17 TIME: 12:13 Assessment/Plan Assessment/Plan Additional Assessment/Plan Chest x-ray was reviewed from yesterday afternoon which is showing marked improvement in bilateral pneumonia. Assessment and recommendations; 1. Patient admitted with bilateral pneumonia with marked clinical and radiological improvement. 2. Advanced dementia. Continue current treatment. Continue current antibiotics for additional 48 hours. Consultation Date/Type/Reason Admit Date/Time Jul 13, 2017 at 01:24 Initial Consult Date 07/14/17 Type of Consultation: Pulmonary Referring Provider: EUGENIE STRONG MD 24 HR Interval Summary Free Text/Dictation Patient's condition is stable. Remains awake and alert. Denies any shortness of breath. General exam; elderly woman, awake, currently in no distress. Exam/Review of Systems Vital Signs Vitals Vital Signs Date Time Temp Pulse Resp B/P Pulse Ox O2 Delivery O2 Flow Rate FiO2 07/17/17 11:41 97.8 79 18 117/74 98 07/15/17 17:06 21 07/13/17 16:00 Non Rebreather 15.0 Intake and Output 07/16/17 07/16/17 07/17/17 15:00 23:00 07:00 Intake Total 100 ml 410 ml 200 ml Balance 100 ml 410 ml 200 ml Exam HEENT exam; supple neck, no JVD. No lymphadenopathy. Midline trachea. No thyromegaly. Patient is edentulous. Chest exam; clear to auscultation. S1-S2 audible, no murmurs. Regular rhythm. Abdomen exam; soft, nontender. No organomegaly. Bowel sounds audible. Extremity exam; no peripheral edema. RADIOLOGICAL TECHNICIAN exam; no focal motor deficit. Results Result Diagram: 07/16/17 0816 07/16/17 0816 Results 24 hrs Laboratory Tests Test 07/16/17 17:07 07/16/17 21:38 07/17/17 08:25 Bedside Glucose 106 107 96 Medications Medications Current Medications Ondansetron HCl (Zofran Inj) 4 mg Q6H PRN IV NAUSEA AND/OR VOMITING; Start at 15:30 Acetaminophen (Tylenol Tab) 650 mg Q6H PRN PO PAIN LEVEL 1-3 OR FEVER; Start 07/13/17 at 15:30 Acetaminophen/ Hydrocodone Bitart ([place] (5/325)) 1 tab Q6H PRN PO MODERATE PAIN LEVEL 4-6; Start 07/13/17 at 15:30 Morphine Sulfate 2 mg 2 mg Q4H PRN IV SEVERE PAIN LEVEL 7-10; Start 07/13/17 at 15:30 Levofloxacin/ Dextrose (Levaquin 750 Mg/ D5W 150 ml (Pmx)) 150 ml @ 100 mls/hr Q48H IVPB Last administered on 07/15/17 18:19; Admin Dose 100 MLS/HR; Start 07/13/17 at 15:30 Aspirin (Aspirin) 81 mg DAILY PO Last administered on 07/17/17 08:26; Admin Dose 81 MG; Start 07/15/17 at 09:00 Nitroglycerin (Nitroglycerin (Sl Tab) 0.4 Mg) 1 tab Q5M PRN SL CHEST PAIN; Start 07/13/17 at 15:30 Diagnostic Test (Pha) (Accu-Chek) 1 ea 02 XX Last administered on 07/14/17 20 :20; Admin Dose 1 EA; Start 07/14/17 at 02:00 Miscellaneous Information 1 ea NOTE XX ; Start 07/13/17 at 16:00 Glucose (Glutose) 15 gm Q15M PRN PO DECREASED GLUCOSE; Start 07/13/17 at 16:00 Glucose (Glutose) 22.5 gm Q15M PRN PO DECREASED GLUCOSE; Start 07/13/17 at 16: 00 Dextrose (D50w Syringe) 25 ml Q15M PRN IV DECREASED GLUCOSE; Start 07/13/17 at 16:00 Dextrose (D50w Syringe) 50 ml Q15M PRN IV DECREASED GLUCOSE; Start 07/13/17 at 16:00 Glucagon (Glucagen) 1 mg Q15M PRN IM DECREASED GLUCOSE; Start 07/13/17 at 16: 00 Glucose (Glutose) 15 gm Q15M PRN BUCCAL DECREASED GLUCOSE; Start 07/13/17 at 16:00 Carvedilol 3.125 mg 3.125 mg BID PO Last administered on 07/17/17 08:26; Admin Dose 3.125 MG; Start 07/13/17 at 21:00 Aztreonam (Azactam 1gm/NS (Pmx)) 50 ml @ 100 mls/hr Q12 IVPB Last administered on 07/17/17 09:24; Admin Dose 100 MLS/HR; Start 07/14/17 at 12: 30 Insulin Glargine 20 unit 20 unit DAILY@08 SC Last administered on 07/17/17 08 :32; Admin Dose 20 UNIT; Start 07/15/17 at 08:00 Fluconazole/ Sodium Chloride (Diflucan 100 Mg/ NS (Pmx)) 50 ml @ 50 mls/hr Q24H IVPB Last administered on 07/16/17 11:34; Admin Dose 50 MLS/HR; Start at 12:00 Nystatin (Nystatin Susp) 5 ml QID PO Last administered on 07/17/17 08:27; Admin Dose 5 ML; Start 07/16/17 at 17:00 Enoxaparin Sodium (Lovenox) 30 mg DAILY SC Last administered on 07/17/17 08: 32; Admin Dose 30 MG; Start 07/17/17 at 09:00 Furosemide (Lasix) 20 mg DAILY IV Last administered on 07/17/17 08:27; Admin Dose 20 MG; Start 07/17/17 at 09:00 Clopidogrel Bisulfate (plaVIX) 75 mg DAILY PO Last administered on 07/17/17 08:26; Admin Dose 75 MG; Start 07/17/17 at 09:00 SHARATH HARRIS Jul 17, 2017 12:14
[2017-07-17] MEDS: FLUCONAZOLE 100 MG/NS (PMX) 50 ML IVPB SCH (12:47)
[2017-07-17] MEDS ORDERED: CARV3.1260 PO (15:04)
[2017-07-17] MEDS ORDERED: CLOP75TA28 PO (15:04)
[2017-07-17] MEDS ORDERED: FURO20TA3 PO (15:04)
[2017-07-17] MEDS: LEVOFLOXACIN 750MG/D5W (PMX) 150 ML IVPB SCH (15:30)
[2017-07-17] MEDS ORDERED: LANT3I SC (16:05)
--- NOTE | 2017-07-17 16:11 | DS ---
Date/Time of Note Date/Time of Note DATE: 07/17/17 TIME: 16:05 Discharge Summary Admission/Discharge Info Admit Date/Time Jul 13, 2017 at 01:24 Discharge Date/Time Discharge Diagnosis Acute decompensated diastolic CHF Pneumonia Hx of Present Illness Patient is a 77-year-old female who resides in a care home, patient presents with shortness of breath. Patient is a poor historian secondary to likely dementia and possible psychiatric disorder, however according to care home notes and EMS this patient started to complain of shortness of breath. Prior to arrival this patient was given a breathing treatment with albuterol and Atrovent with only mild improvement in her symptoms. In the ER chest x-ray showed pulmonary edema versus multifocal pneumonia, patient was given Lasix 1 will start antibiotics. Patient cannot provide any further history at this time. Hospital Course IMPRESSION: 1. Non-ST elevation myocardial infarction in the setting of respiratory distress, mild renal insufficiency with currently down trending cardiac enzymes. No chest pain. 2. Hypertension, under reasonable control. 3. Abnormal electrocardiogram with nonspecific ST and T abnormalities in the setting of non-ST elevation myocardial infarction. 4. Probable congestive heart failure by chest x-ray, question systolic versus diastolic acute on chronic. 5. Likely associated pneumonia. 6. Renal insufficiency. 7. Diabetes mellitus, uncontrolled blood sugars. 8. Leukocytosis. 9. Anemia. Recc: -Tele -Serial ecg's -Continue asa and add plavix to maximize medical therapy -Decrease lovenox dose -Contineu BB -Continue abx's -Folloe volume status clsoely on lasix diuresis -Will f/u echo. Patient was found to have elevated troponin. Cardiology was consulted who thought this was a type II MO and no cath was performed. XR showed both pneumonia and CHF. She was given diuresis and antibiotics and her symptom rapidly improved. She was also found to have markedly elevated blood sugars which were controlled with basal lantus 20 units and sliding scale insulin. The patient has obvious dementia and is unable to participate in history or care discussions but was obviously very comfortable. She will be discharged back to her NH on: - Plavix 75 - Lantus 20 with sliding scale - Coreg 3.125 - Lasix 20 mg She will need to have repeat BMP performed in the next 1-2 weeks, as well as close observation of her volume status by NH staff Home Meds Active Scripts Insulin Glargine* (Lantus*) 100 Unit/Ml Soln, 20 UNIT SC DAILY@08 for 30 Days, # 30 Prov:EUGENIE STRONG MD 07/17/17 Furosemide* (Furosemide*) 20 Mg Tablet, 20 MG PO DAILY for 30 Days, #30 TAB Prov:EUGENIE STRONG MD 07/17/17 Carvedilol* (Carvedilol*) 3.125 Mg Tablet, 3.125 MG PO BID for 30 Days, #60 TAB Prov:EUGENIE STRONG MD 07/17/17 Clopidogrel Bisulfate (Clopidogrel) 75 Mg Tablet, 75 MG PO DAILY for 30 Days, # 30 TAB Prov:EUGENIE STRONG MD 07/17/17 Primary Care Provider Moustapha Bingham MD Pending Labs Laboratory Tests Test 07/16/17 17:07 07/16/17 21:38 07/17/17 08:25 07/17/17 12:46 Bedside Glucose 106mg/dL (70-220) 107mg/dL (70-220) 96mg/dL (70-220) 165mg/dL (70-220) EUGENIE STRONG MD Jul 17, 2017 16:11
--- NOTE | 2017-07-17 18:04 | CONS ---
Date/Time of Note Date/Time of Note DATE: 07/17/17 TIME: 18:00 Assessment/Plan Assessment/Plan Chief Complaint/Hosp Course IMPRESSION: 1. Non-ST elevation myocardial infarction in the setting of respiratory distress, mild renal insufficiency with currently down trending cardiac enzymes. No chest pain. 2. Hypertension, under reasonable control. 3. Abnormal electrocardiogram with nonspecific ST and T abnormalities in the setting of non-ST elevation myocardial infarction. 4. Probable congestive heart failure by chest x-ray, question systolic versus diastolic acute on chronic. 5. Likely associated pneumonia. 6. Renal insufficiency. 7. Diabetes mellitus, uncontrolled blood sugars. 8. Leukocytosis. 9. Anemia. Recc: -Tele -Serial ecg's -Continue asa/plavix -Decrease lovenox dose -Continue BB -Continue abx's -Follow volume status closely on lasix diuresis -? Echo Problems: Consultation Date/Type/Reason Admit Date/Time Jul 13, 2017 at 01:24 Initial Consult Date 07/14/17 Type of Consultation: CARDIOLOGY Reason for Consultation Nstemi Referring Provider: EUGENIE STRONG MD Exam/Review of Systems Vital Signs Vitals Vital Signs Date Time Temp Pulse Resp B/P Pulse Ox O2 Delivery O2 Flow Rate FiO2 07/17/17 16:18 97.8 67 18 125/77 97 07/15/17 17:06 21 07/13/17 16:00 Non Rebreather 15.0 Intake and Output 07/16/17 07/16/17 07/17/17 15:00 23:00 07:00 Intake Total 100 ml 410 ml 200 ml Balance 100 ml 410 ml 200 ml Exam Review of Systems: CONSTITUTIONAL: No fevers, chills. PULMONARY: No sob CARDIOVASCULAR: No chest pain/palpitations GASTROINTESTINAL: No nausea/vomiting. GENITOURINARY: No hematuria/dysuria. MUSCULOSKELETAL: No myagias/arthalgias. PSYCHIATRIC: The patient denies depression. NEUROLOGIC: No weakness Constitutional: alert, oriented Psych: no complaints Head: normocephalic ENMT: mucosa pink and moist Neck: jvd (9 cm water), supple Respiratory: diminished breath sounds Cardiovascular: regular rate and rhythm Gastrointestinal: non-tender, soft Musculoskeletal: muscle tone (normal) Extremities: edema (none) Neurological: other (No focal deficits) Results Result Diagram: 10/18/17 0816 10/18/17 0816 Results 24 hrs Laboratory Tests Test 07/16/17 21:38 07/17/17 08:25 07/17/17 12:46 07/17/17 17:58 Bedside Glucose 107 96 165 94 Medications Medications Current Medications Ondansetron HCl (Zofran Inj) 4 mg Q6H PRN IV NAUSEA AND/OR VOMITING; Start at 15:30 Acetaminophen (Tylenol Tab) 650 mg Q6H PRN PO PAIN LEVEL 1-3 OR FEVER; Start 07/13/17 at 15:30 Acetaminophen/ Hydrocodone Bitart ([place] (5/325)) 1 tab Q6H PRN PO MODERATE PAIN LEVEL 4-6; Start 07/13/17 at 15:30 Morphine Sulfate 2 mg 2 mg Q4H PRN IV SEVERE PAIN LEVEL 7-10; Start 07/13/17 at 15:30 Levofloxacin/ Dextrose (Levaquin 750 Mg/ D5W 150 ml (Pmx)) 150 ml @ 100 mls/hr Q48H IVPB Last administered on 07/17/17 15:30; Admin Dose 100 MLS/HR; Start 07/13/17 at 15:30 Aspirin (Aspirin) 81 mg DAILY PO Last administered on 07/17/17 08:26; Admin Dose 81 MG; Start 07/15/17 at 09:00 Nitroglycerin (Nitroglycerin (Sl Tab) 0.4 Mg) 1 tab Q5M PRN SL CHEST PAIN; Start 07/13/17 at 15:30 Diagnostic Test (Pha) (Accu-Chek) 1 ea 02 XX Last administered on 07/14/17 20 :20; Admin Dose 1 EA; Start 07/14/17 at 02:00 Miscellaneous Information 1 ea NOTE XX ; Start 07/13/17 at 16:00 Glucose (Glutose) 15 gm Q15M PRN PO DECREASED GLUCOSE; Start 07/13/17 at 16:00 Glucose (Glutose) 22.5 gm Q15M PRN PO DECREASED GLUCOSE; Start 07/13/17 at 16: 00 Dextrose (D50w Syringe) 25 ml Q15M PRN IV DECREASED GLUCOSE; Start 07/13/17 at 16:00 Dextrose (D50w Syringe) 50 ml Q15M PRN IV DECREASED GLUCOSE; Start 07/13/17 at 16:00 Glucagon (Glucagen) 1 mg Q15M PRN IM DECREASED GLUCOSE; Start 07/13/17 at 16: 00 Glucose (Glutose) 15 gm Q15M PRN BUCCAL DECREASED GLUCOSE; Start 07/13/17 at 16:00 Carvedilol 3.125 mg 3.125 mg BID PO Last administered on 07/17/17 08:26; Admin Dose 3.125 MG; Start 07/13/17 at 21:00 Aztreonam (Azactam 1gm/NS (Pmx)) 50 ml @ 100 mls/hr Q12 IVPB Last administered on 07/17/17 09:24; Admin Dose 100 MLS/HR; Start 07/14/17 at 12: 30 Insulin Glargine 20 unit 20 unit DAILY@08 SC Last administered on 07/17/17 08 :32; Admin Dose 20 UNIT; Start 07/15/17 at 08:00 Fluconazole/ Sodium Chloride (Diflucan 100 Mg/ NS (Pmx)) 50 ml @ 50 mls/hr Q24H IVPB Last administered on 07/17/17 12:47; Admin Dose 50 MLS/HR; Start at 12:00 Nystatin (Nystatin Susp) 5 ml QID PO Last administered on 07/17/17 13:06; Admin Dose 5 ML; Start 07/16/17 at 17:00 Enoxaparin Sodium (Lovenox) 30 mg DAILY SC Last administered on 07/17/17 08: 32; Admin Dose 30 MG; Start 07/17/17 at 09:00 Furosemide (Lasix) 20 mg DAILY IV Last administered on 07/17/17 08:27; Admin Dose 20 MG; Start 07/17/17 at 09:00 Clopidogrel Bisulfate (plaVIX) 75 mg DAILY PO Last administered on 07/17/17 08:26; Admin Dose 75 MG; Start 07/17/17 at 09:00 ANGEL SHAW Jul 17, 2017 18:04
--- NOTE | 2017-07-17 18:26 | RADRPT ---
Vent Rate: 94 bpm RR Interval: 0 msec [place] Interval: 146 msec QRS Duration: 94 msec QT Interval: 434 msec QTC Interval: 542 msec P-R-T [place]: 71 - 56 - 78 degrees Normal sinus rhythm Prolonged QT Abnormal ECG Electronically Signed By: Freedom Jj [id number]
--- NOTE | 2017-07-17 21:44 | CONS ---
Date/Time of Note Date/Time of Note DATE: 07/17/17 TIME: 21:43 Consult Date/Type/Reason Admit Date/Time Jul 13, 2017 at 01:24 Initial Consult Date 07/14/17 Type of Consultation: ID Ordering Provider: EUGENIE STRONG MD Objective Vital Signs Date Time Temp Pulse Resp B/P Pulse Ox O2 Delivery O2 Flow Rate FiO2 07/17/17 16:18 97.8 67 18 125/77 97 07/15/17 17:06 21 07/13/17 16:00 Non Rebreather 15.0 Intake and Output 07/16/17 07/16/17 07/17/17 15:00 23:00 07:00 Intake Total 100 ml 410 ml 200 ml Balance 100 ml 410 ml 200 ml Results/Medications Result Diagram: 07/16/17 0816 07/16/17 0816 Results 24 hrs Laboratory Tests Test 07/17/17 08:25 07/17/17 12:46 07/17/17 17:58 Bedside Glucose 96 165 94 Assessment/Plan Chief Complaint/Hosp Course SUBJECTIVE: The patient is confused, looks comfortable, no fevers. MICROBIOLOGY: Urine culture growing yeast. ANTIMICROBIALS: The patient is on: 1. Azactam 2. Fluconazole. 3. Levaquin. ALLERGIES 1. PENICILLIN. 2. SULFA. PHYSICAL EXAMINATION: GENERAL: This is a chronically ill-appearing, elderly woman who is awake, in no distress. HEENT: Head atraumatic, normocephalic. Sclerae anicteric. Buccal mucosa dry. There is white thrush present on her tongue. NECK: Supple. CHEST: Rise symmetrical. Breath sounds clear, diminished to bases. HEART: S1, S2. ABDOMEN: Soft. Bowel tones present. ASSESSMENT: 1. Resolving pneumonia. 2. Urinary tract infection. 3. Oral thrush. 4. Dementia. 5. Acute possibly on chronic kidney disease. 6. Status post sepsis present on admission. PLAN: Patient remains stable, covered with appropriate antibiotics. DW staff Problems: BORIS WILSON NP Jul 17, 2017 21:44
[2017-07-18 09:19] LABS: MICROALBUMIN 117.7 mg/dL
== END 2017-07-17 19:14 | DRG 871 ==
LOC: E/R 23:07 → MS4 07-13 01:24
PROVIDERS: ADMIT Internal Medicine; ATTEND Internal Medicine
PROC: 4A133R1 Monitoring of Arterial Saturation, Peripheral, Percutaneous Approach (ICD-10-PCS; 2017-07-12)
PROC: 5A09357 Assistance with Respiratory Ventilation, Less than 24 Consecutive Hours, Continuous Positive Airway Pressure (ICD-10-PCS; principal; 2017-07-13)
DX: A41.9 Sepsis, unspecified organism (principal); J96.01 Acute respiratory failure with hypoxia; I21.4 Non-ST elevation (NSTEMI) myocardial infarction; I50.33 Acute on chronic diastolic (congestive) heart failure; J18.9 Pneumonia, unspecified organism; N17.9 Acute kidney failure, unspecified; G93.41 Metabolic encephalopathy; I13.0 Hypertensive heart and chronic kidney disease with heart failure and stage 1 through stage 4 chronic kidney disease, or unspecified chronic kidney disease; B37.0 Candidal stomatitis; N39.0 Urinary tract infection, site not specified; J44.9 Chronic obstructive pulmonary disease, unspecified; E87.6 Hypokalemia; E05.90 Thyrotoxicosis, unspecified without thyrotoxic crisis or storm; F99 Mental disorder, not otherwise specified; Z66 Do not resuscitate; D50.9 Iron deficiency anemia, unspecified; F03.90 Unspecified dementia, unspecified severity, without behavioral disturbance, psychotic disturbance, mood disturbance, and anxiety; E11.22 Type 2 diabetes mellitus with diabetic chronic kidney disease; R65.20 Severe sepsis without septic shock; N18.9 Chronic kidney disease, unspecified; E11.65 Type 2 diabetes mellitus with hyperglycemia; Z79.4 Long term (current) use of insulin; Z79.82 Long term (current) use of aspirin; Z88.0 Allergy status to penicillin; Z88.2 Allergy status to sulfonamides
CPT/HCPCS: 36600; 71010; 80048; 80053; 80061; 81001; 81003; 82043; 82550; 82553; 82728; 82803; 82962; 83036; 83540; 83605; 83735; 83880; 84100; 84155; 84300; 84439; 84443; 84484; 85025; 85610; 85730; 87040; 87081; 87086; 92610; 93005; 94644; 94660; 96361; 96365; 96366; 96367; 96372; 96375; J1940; J0692; J1450; J1650; J1815; J1956; J3370; J7040